=== PATIENT | female | born 1930 | race Caucasian/White ===

== ENCOUNTER 2021-07-22 15:35 | Inpatient (IN) | payer MEDICARE, BC ==
[2021-07-22] MEDS ORDERED: SODIUM CHLORIDE 0.9% 500 ML 500 ML IV STA (16:02)
--- NOTE | 2021-07-22 16:09 | ED ---
General Adult HPI - General Chief complaint: Weakness Stated complaint: Weakness Time Seen by Provider: 07/22/21 15:59 Source: EMS, RN notes reviewed, old records reviewed Mode of arrival: EMS Limitations: no limitations - History of Present Illness Initial comments: 89-year-old female brought in for increased weakness. Patient herself has no complaints time my evaluation. She denies focal numbness or weakness. Denies headache. Denies abdominal pain or chest pain. She is hard of hearing and history is limited. According to EMS and noted the patient have low blood pressure and elevated heart rate. She was in atrial fibrillation with rapid ve ntricular response. Further history will be obtained from the patient's daughter. - Related Data Home Medications Medication Instructions Recorded Confirmed PARoxetine [Paxil] 20 mg PO HS 09/14/14 07/22/21 lisinopriL [Zestril] 5 mg PO DAILY 09/14/14 07/22/21 ALPRAZolam [Xanax] 0.25 mg PO DAILY PRN 07/22/21 07/22/21 Acetaminophen Tab [Tylenol Tab] 500 mg PO QID PRN 07/22/21 07/22/21 Apixaban [Eliquis] 5 mg PO BID 07/22/21 07/22/21 Furosemide [Lasix] 40 mg PO DAILY 07/22/21 07/22/21 Loratadine [Claritin] 10 mg PO DAILY 07/22/21 07/22/21 Metoprolol Tartrate [Lopressor] 25 mg PO TID 07/22/21 07/22/21 Pravastatin Sodium [Pravachol] 40 mg PO HS 07/22/21 07/22/21 Previous Rx's Medication Instructions Recorded Nitroglycerin Sl Tabs [Nitrostat] 0.4 mg SUBLINGUAL Q5M PRN #25 tab 09/18/14 Allergies Allergy/AdvReac Type Severity Reaction Status Date / Time Sulfa (Sulfonamide Allergy Rash/Hives Verified 07/22/21 17:27 Antibiotics) Review of Systems ROS Statement: Those systems with pertinent positive or pertinent negative responses have been documented in the HPI. ROS Other: All systems not noted in ROS Statement are negative. Past Medical History Past Medical History: Coronary Artery Disease (CAD), Eye Disorder, GERD/Reflux, Hyperlipidemia, Hypertension, Skin Disorder Additional Past Medical History / Comment(s): 09/17/14 Pt admitted to floor s/p PTCA and stenting mid LAD. Other HX: macular degeneration R eye, psoriasis, bladder incontinence History of Any Multi-Drug Resistant Organisms: None Reported Past Surgical History: Coronary Bypass/CABG, Heart Catheterization With Stent, Hysterectomy Additional Past Surgical History / Comment(s): 09/17/14 PTCA and stenting mid LAD just before diagonal branch. 08/29/13 triple bypass Past Anesthesia/Blood Transfusion Reactions: No Reported Reaction Date of Last Stent Placement:: 2013 Past Psychological History: Anxiety, Depression Smoking Status: Never smoker Past Alcohol Use History: None Reported Past Drug Use History: None Reported - Past Family History Father Family Medical History: Coronary Artery Disease (CAD), Myocardial Infarction (MA) Additional Family Medical History / Comment(s): Father at age 86yrs. Brother(s) Family Medical History: Coronary Artery Disease (CAD), Myocardial Infarction (MA) Additional Family Medical History / Comment(s): Pt had 2 brothers of MA's one was 45yrs old, and the other 55yrs old. She had one brother who had a blood clot in his lung post nephrectomy. Mother Family Medical History: No Reported History Additional Family Medical History / Comment(s): Mother at age 97yrs. General Exam Limitations: no limitations General appearance: alert, in no apparent distress Head exam: Present: atraumatic, normocephalic Eye exam: Present: normal appearance, PERRL ENT exam: Present: mucous membranes dry Neck exam: Present: normal inspection. Absent: tenderness, meningismus Respiratory exam: Present: normal lung sounds bilaterally. Absent: respiratory distress, wheezes Cardiovascular Exam: Present: tachycardia, irregular rhythm GI/Abdominal exam: Present: soft. Absent: distended, tenderness, guarding, rebound Extremities exam: Present: normal inspection, normal capillary refill. Absent: pedal edema, calf tenderness Neurological exam: Present: alert. Absent: oriented X3, motor sensory deficit Psychiatric exam: Present: normal affect, normal mood Skin exam: Present: warm, dry, intact. Absent: cyanosis, diaphoretic Course Vital Signs 07/22/21 07/22/21 07/22/21 15:48 17:00 18:00 Temperature 98.3 F Pulse Rate 114 H 115 H 112 H Respiratory 24 18 16 Rate Blood Pressure 102/51 110/60 108/66 O2 Sat by Pulse 96 97 96 Oximetry 07/22/21 18:55 Temperature Pulse Rate 105 H Respiratory 18 Rate Blood Pressure 108/46 O2 Sat by Pulse 97 Oximetry - Reevaluation(s) Reevaluation #1: 07/22/21 19:35 I did discuss the patient's CODE STATUS with the daughter who is present and she indicates that the patient is a DO NOT RESUSCITATE and DO NOT INTUBATE. EKG Findings - EKG Comments: EKG Findings:: Atrial fibrillation with RVR, right bundle, left anterior fas cicular block, rate of 114, QRS duration 122, QTC 485, no ST segment elevation Medical Decision Making - Medical Decision Making 89-year-old female, initial history is limited on this patient. After the patient's daughter arrives she indicates that she has not been doing well for about one week. She's been confused. There is no reported fever. No vomiting. The patient did not have any pain complaints. Workup is initiated, showing significant lab abnormalities including leukocytosis of 33. She is in acute renal failure with a creatinine of 2.84. She has a lactic acid of 5.5. She has elevated troponin 0.48. She is anticoagulated with history of atrial fibrillation. She was in A. fib with RVR which is suspect is predominantly from dehydration and sepsis. She is Covid negative. She has a urinary tract infection which is a source of her sepsis. She's given IV hydration in the emergency department. Her head CT is negative for intracranial hemorrhage. Blood cultures are obtained these results are pending as well as urine cultures. IV antibiotics initiated. Case discussed with Dr. Tillman who will admit. - Lab Data Result diagrams: 07/22/21 16:05 07/22/21 16:05 Lab Results 07/22/21 07/22/21 07/22/21 Range/Units 16:05 16:05 16:05 WBC 33.1 H (3.8-10.6) k/uL RBC 4.78 (3.80-5.40) m/uL Hgb 16.3 H (11.4-16.0) gm/dL Hct 48.0 H (34.0-46.0) % MCV 100.5 H (80.0-100.0) fL MCH 34.2 (25.0-35.0) pg MCHC 34.0 (31.0-37.0) g/dL RDW 13.3 (11.5-15.5) % Plt Count 181 (150-450) k/uL MPV 9.8 PT 15.3 H (9.0-12.0) sec INR 1.5 H (<1.2) APTT 26.9 (22.0-30.0) sec Sodium 139 (137-145) mmol/L Potassium 3.9 (3.5-5.1) mmol/L Chloride 106 (98-107) mmol/L Carbon Dioxide 19 L (22-30) mmol/L Anion Gap 14 mmol/L BUN 42 H (7-17) mg/dL Creatinine 2.84 H (0.52-1.04) mg/dL Est GFR (CKD-EPI)AfAm 16 (>60 ml/min/1.73 sqM) Est GFR (CKD-EPI)NonAf 14 (>60 ml/min/1.73 sqM) Glucose 106 H (74-99) mg/dL Lactic Ac Sepsis Rflx Plasma Lactic Acid Poli (0.7-2.0) mmol/L Calcium 8.2 L (8.4-10.2) mg/dL Magnesium 1.7 (1.6-2.3) mg/dL Total Bilirubin 1.5 H (0.2-1.3) mg/dL AST 67 H (14-36) U/L ALT 25 (4-34) U/L Alkaline Phosphatase 82 (38-126) U/L Troponin I (0.000-0.034) ng/mL NT-Pro-B Natriuret Pep pg/mL Total Protein 5.9 L (6.3-8.2) g/dL Albumin 2.9 L (3.5-5.0) g/dL Urine Color Urine Appearance (Clear) Urine pH (5.0-8.0) Ur Specific [place] (1.001-1.035) Urine Protein (Negative) Urine Glucose (UA) (Negative) Urine Ketones (Negative) Urine Blood (Negative) Urine Nitrite (Negative) Urine Bilirubin (Negative) Urine Urobilinogen (<2.0) mg/dL Ur Leukocyte Esterase (Negative) Urine RBC (0-5) /hpf Urine WBC (0-5) /hpf Urine WBC Clumps (None) /hpf Ur Squamous Epith Cells (0-4) /hpf Urine Bacteria (None) /hpf Hyaline Casts (0-2) /lpf Urine Mucus (None) /hpf Coronavirus (PCR) (Not Detectd) 07/22/21 07/22/21 07/22/21 Range/Units 16:05 16:05 16:05 WBC (3.8-10.6) k/uL RBC (3.80-5.40) m/uL Hgb (11.4-16.0) gm/dL Hct (34.0-46.0) % MCV (80.0-100.0) fL MCH (25.0-35.0) pg MCHC (31.0-37.0) g/dL RDW (11.5-15.5) % Plt Count (150-450) k/uL MPV PT (9.0-12.0) sec INR (<1.2) APTT (22.0-30.0) sec Sodium (137-145) mmol/L Potassium (3.5-5.1) mmol/L Chloride (98-107) mmol/L Carbon Dioxide (22-30) mmol/L Anion Gap mmol/L BUN (7-17) mg/dL Creatinine (0.52-1.04) mg/dL Est GFR (CKD-EPI)AfAm (>60 ml/min/1.73 sqM) Est GFR (CKD-EPI)NonAf (>60 ml/min/1.73 sqM) Glucose (74-99) mg/dL Lactic Ac Sepsis Rflx Plasma Lactic Acid Poli 5.5 H* (0.7-2.0) mmol/L Calcium (8.4-10.2) mg/dL Magnesium (1.6-2.3) mg/dL Total Bilirubin (0.2-1.3) mg/dL AST (14-36) U/L ALT (4-34) U/L Alkaline Phosphatase (38-126) U/L Troponin I 0.489 H* (0.000-0.034) ng/mL NT-Pro-B Natriuret Pep 07295 pg/mL Total Protein (6.3-8.2) g/dL Albumin (3.5-5.0) g/dL Urine Color Urine Appearance (Clear) Urine pH (5.0-8.0) Ur Specific [place] (1.001-1.035) Urine Protein (Negative) Urine Glucose (UA) (Negative) Urine Ketones (Negative) Urine Blood (Negative) Urine Nitrite (Negative) Urine Bilirubin (Negative) Urine Urobilinogen (<2.0) mg/dL Ur Leukocyte Esterase (Negative) Urine RBC (0-5) /hpf Urine WBC (0-5) /hpf Urine WBC Clumps (None) /hpf Ur Squamous Epith Cells (0-4) /hpf Urine Bacteria (None) /hpf Hyaline Casts (0-2) /lpf Urine Mucus (None) /hpf Coronavirus (PCR) (Not Detectd) 07/22/21 07/22/21 07/22/21 Range/Units 16:45 17:40 18:00 WBC (3.8-10.6) k/uL RBC (3.80-5.40) m/uL Hgb (11.4-16.0) gm/dL Hct (34.0-46.0) % MCV (80.0-100.0) fL MCH (25.0-35.0) pg MCHC (31.0-37.0) g/dL RDW (11.5-15.5) % Plt Count (150-450) k/uL MPV PT (9.0-12.0) sec INR (<1.2) APTT (22.0-30.0) sec Sodium (137-145) mmol/L Potassium (3.5-5.1) mmol/L Chloride (98-107) mmol/L Carbon Dioxide (22-30) mmol/L Anion Gap mmol/L BUN (7-17) mg/dL Creatinine (0.52-1.04) mg/dL Est GFR (CKD-EPI)AfAm (>60 ml/min/1.73 sqM) Est GFR (CKD-EPI)NonAf (>60 ml/min/1.73 sqM) Glucose (74-99) mg/dL Lactic Ac Sepsis Rflx Y Plasma Lactic Acid Poli (0.7-2.0) mmol/L Calcium (8.4-10.2) mg/dL Magnesium (1.6-2.3) mg/dL Total Bilirubin (0.2-1.3) mg/dL AST (14-36) U/L ALT (4-34) U/L Alkaline Phosphatase (38-126) U/L Troponin I (0.000-0.034) ng/mL NT-Pro-B Natriuret Pep pg/mL Total Protein (6.3-8.2) g/dL Albumin (3.5-5.0) g/dL Urine Color Yellow Urine Appearance Turbid H (Clear) Urine pH 5.0 (5.0-8.0) Ur Specific [place] 1.019 (1.001-1.035) Urine Protein 2+ H (Negative) Urine Glucose (UA) Negative (Negative) Urine Ketones Trace H (Negative) Urine Blood Moderate H (Negative) Urine Nitrite Negative (Negative) Urine Bilirubin Negative (Negative) Urine Urobilinogen 3.0 (<2.0) mg/dL Ur Leukocyte Esterase Large H (Negative) Urine RBC 42 H (0-5) /hpf Urine WBC >182 H (0-5) /hpf Urine WBC Clumps Many H (None) /hpf Ur Squamous Epith Cells 7 H (0-4) /hpf Urine Bacteria Many H (None) /hpf Hyaline Casts 50 H (0-2) /lpf Urine Mucus Rare H (None) /hpf Coronavirus (PCR) Not Detected (Not Detectd) Critical Care Time Critical Care Time: Yes Total Critical Care Time: 35 Disposition Clinical Impression: Dehydration, Acute renal failure, UTI (urinary tract infection), Lactic acidosis, Elevated troponin I level Disposition: ADMITTED IP TO THIS [facility] Condition: Serious Is patient prescribed a controlled substance at d/c from ED?: No Referrals: Marissa Tillman MD [Primary Care Provider] - 1-2 days Decision to Admit Reason: Admit from EC Decision Date: 07/22/21 Decision Time: 19:37
[2021-07-22 16:24] LABS: Albumin 2.9 g/dL (3.5-5.0); Calcium 8.2 mg/dL (8.4-10.2); Magnesium 1.7 mg/dL (1.6-2.3); Potassium 3.9 mmol/L (3.5-5.1); Total Bilirubin 1.5 mg/dL (0.2-1.3); Total Protein 5.9 g/dL (6.3-8.2)
[2021-07-22 16:31] LABS: INR 1.5 (<1.2); Partial Thromboplastin Time 26.9 sec (22.0-30.0); Prothrombin Time 15.3 sec (9.0-12.0)
[2021-07-22 16:46] LABS: HGB 16.3 gm/dL (11.4-16.0); MCH 34.2 pg (25.0-35.0); MCV 100.5 fL (80.0-100.0); Mean Platelet Volume 9.8; Platelet Count 181 k/uL (150-450); RBC 4.78 m/uL (3.80-5.40); RDW 13.3 % (11.5-15.5)
--- NOTE | 2021-07-22 16:48 | CT ---
EXAMINATION TYPE: CT brain wo con DATE OF EXAM: 07/22/2021 COMPARISON: 12/30/2013 HISTORY: Altered mental status. CT DLP: 1127.4 mGycm Automated exposure control for dose reduction was used. Images obtained of the brain without contrast. There is cerebral cortical atrophy. There is no mass effect nor midline shift. There is no sign of in tracranial hemorrhage. The calvarium is intact. Skull base is intact IMPRESSION: Cerebral atrophy. No acute intracranial abnormality. No change compared to old exam.
--- NOTE | 2021-07-22 16:50 | XR ---
EXAMINATION TYPE: XR chest 2V DATE OF EXAM: 07/22/2021 COMPARISON: 09/11/2013 HISTORY: Weakness TECHNIQUE: 2 views FINDINGS: Heart is enlarged. There is coarse increased interstitial pulmonary density. There are ster nal wires. There is no definite pleural effusion. IMPRESSION: Cardiomegaly. There is clearing of the pleural effusions compared to old exam. 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 Acute mild heart failure not excluded.
[2021-07-22 16:56] LABS: WBC 33.1 k/uL (3.8-10.6)
[2021-07-22] MEDS ORDERED: SODIUM CHLORIDE 0.9% 500 ML 500 ML IV ONE (17:23)
[2021-07-22] MEDS ORDERED: cefTRIAXone IN SWFI 1,000 MG/10 ML SYRINGE IVP STA (17:24)
[2021-07-22 18:46] LABS: Appearance,Urine Turbid (Clear); Bacteria,Urine Many /hpf; Bilirubin,Urine Negative (Negative); Blood,Urine Moderate (Negative); Color,Urine Yellow; Glucose,Urine (UA) Negative (Negative); Hyaline Casts,Urine 50 /lpf (0-2); Ketones,Urine Trace (Negative); Leukocyte Esterase,Urine Large (Negative); Mucus,Urine Rare /hpf; Nitrite,Urine Negative (Negative); Protein,Urine 2+ (Negative); RBC,Urine 42 /hpf (0-5); Specific Gravity,Urine 1.019 (1.001-1.035); Squamous Epithelial Cell,Urine 7 /hpf (0-4); WBC,Urine >182 /hpf (0-5)
[2021-07-22] MEDS: SODIUM CHLORIDE 0.9% 1,000 ML IV SCH (18:48)
[2021-07-22] MEDS ORDERED: NALOXONE 0.4 MG/ML 1 ML VIAL IV PRN (19:32)
[2021-07-22] MEDS ORDERED: ALPRAZolam 0.25 MG TAB PO PRN (19:34)
[2021-07-22 19:39] LABS: Band Neutrophils % 14 %; Eosinophils # (M) 0.33 k/uL (0-0.7); Lymphocytes # (M) 1.99 k/uL (1.0-4.8); Metamyelocytes # (M) 0.99 k/uL (0); Metamyelocytes % 3 %; Monocytes # (M) 1.32 k/uL (0-1.0); Myelocytes # (M) 0.33 k/uL (0); Myelocytes % 1 %; Neutrophils % (M) 74 %; Nucleated Red Blood Cells 0 /100 WBC (0-0); Total Cells Counted 200
[2021-07-22 19:40] LABS: Toxic Vacuolation Present
[2021-07-22] MEDS: METOPROLOL TARTRATE 25 MG TAB PO SCH (22:43)
[2021-07-22] MEDS: APIXABAN 5 MG TAB PO SCH (22:43)
[2021-07-23] MEDS: SODIUM CHLORIDE 0.9% 1,000 ML IV SCH ×3 (06:42→21:11)
[2021-07-23 08:34] LABS: Albumin 2.7 g/dL (3.5-5.0); Calcium 7.7 mg/dL (8.4-10.2); Total Bilirubin 1.6 mg/dL (0.2-1.3); Total Protein 5.9 g/dL (6.3-8.2)
[2021-07-23 08:36] LABS: Potassium 5.1 mmol/L (3.5-5.1)
[2021-07-23] MEDS: FUROSEMIDE 40 MG TAB PO SCH (09:04)
[2021-07-23] MEDS: METOPROLOL TARTRATE 25 MG TAB PO SCH ×3 (09:04→21:11)
[2021-07-23] MEDS: APIXABAN 5 MG TAB PO SCH ×2 (09:04→21:11)
[2021-07-23 09:13] LABS: HGB 14.6 gm/dL (11.4-16.0); Hypochromasia Slight; MCH 33.5 pg (25.0-35.0); MCHC 32.5 g/dL (31.0-37.0); MCV 102.8 fL (80.0-100.0); Macrocytosis Slight; Mean Platelet Volume 9.5; Platelet Count 169 k/uL (150-450); RBC 4.37 m/uL (3.80-5.40); RDW 13.8 % (11.5-15.5); WBC 23.6 k/uL (3.8-10.6)
[2021-07-23 12:00] LABS: Band Neutrophils % 6 %; Lymphocytes # (M) 1.18 k/uL (1.0-4.8); Metamyelocytes # (M) 0.47 k/uL (0); Metamyelocytes % 2 %; Monocytes # (M) 0.94 k/uL (0-1.0); Myelocytes # (M) 0.24 k/uL (0); Myelocytes % 1 %; Neutrophils % (M) 82 %; Nucleated Red Blood Cells 0 /100 WBC (0-0); Total Cells Counted 100
[2021-07-23 12:01] LABS: Toxic Vacuolation Present
[2021-07-23] MEDS ORDERED: VANCOMYCIN IV PER PHARMACY 1 EACH MISC MISCELLANE PRN (13:27)
[2021-07-23] MEDS ORDERED: VANCOMYCIN 1,250 MG in SODIUM CHLORIDE 0.9% 250 ML IVPB ONE (14:00)
[2021-07-23] MEDS ORDERED: NITROGLYCERIN SL TABS 0.4 MG TAB SUBLINGUAL PRN (15:37)
[2021-07-23] MEDS: PRAVASTATIN SODIUM 40 MG TAB PO SCH (21:11)
[2021-07-23] MEDS: PARoxetine 20 MG TAB PO SCH (21:11)
[2021-07-23] MEDS: PIPERACILLIN-TAZOBACTAM 3.375 GM in SODIUM CHLORIDE 0.9% 100 ML IVPB SCH (21:12)
[2021-07-24] MEDS: SODIUM CHLORIDE 0.9% 1,000 ML IV SCH ×4 (03:08→22:56)
[2021-07-24 06:34] LABS: Basophils % (A) 0 %; Eosinophils # (A) 0.1 k/uL (0-0.7); Eosinophils % (A) 1 %; HCT 44.1 % (34.0-46.0); HGB 13.9 gm/dL (11.4-16.0); Lymphocytes # (A) 0.8 k/uL (1.0-4.8); Lymphocytes % (A) 4 %; MCH 31.8 pg (25.0-35.0); MCHC 31.6 g/dL (31.0-37.0); MCV 100.9 fL (80.0-100.0); Mean Platelet Volume 8.7; Monocytes # (A) 0.4 k/uL (0-1.0); Monocytes % (A) 2 %; Neutrophils % (A) 92 %; Platelet Count 178 k/uL (150-450); RBC 4.37 m/uL (3.80-5.40); RDW 13.4 % (11.5-15.5); WBC 18.5 k/uL (3.8-10.6)
[2021-07-24 06:56] LABS: Albumin 2.5 g/dL (3.5-5.0); Calcium 7.7 mg/dL (8.4-10.2); Potassium 3.3 mmol/L (3.5-5.1); Total Bilirubin 1.7 mg/dL (0.2-1.3); Total Protein 5.5 g/dL (6.3-8.2)
[2021-07-24] MEDS: FUROSEMIDE 40 MG TAB PO SCH (08:24)
[2021-07-24] MEDS: METOPROLOL TARTRATE 25 MG TAB PO SCH ×3 (08:25→20:10)
[2021-07-24] MEDS: LORATADINE 10 MG TAB PO SCH (08:25)
[2021-07-24] MEDS: PIPERACILLIN-TAZOBACTAM 3.375 GM in SODIUM CHLORIDE 0.9% 100 ML IVPB SCH (08:25)
[2021-07-24] MEDS: APIXABAN 5 MG TAB PO SCH ×2 (08:25→20:10)
--- NOTE | 2021-07-24 08:48 | P.CONS ---
History of Present Illness - Reason for Consult Consult date: 07/23/21 bacteremia Requesting physician: Vivek Tillman - Chief Complaint weakness x few days - History of Present Illness istory of present illness : Patient is 89-year-old female who was brought into the hospital yesterday afternoon for evaluation of increased weakness according to EMS who brought the patient to the hospital patient did have low blood pressure and elevated heart rate patient was noticed to be in atrial fibrillation with rapid ventricular response and most information was obtained by the ER physician from the patient daughter. Patient was subsequently admitted to hospital patient did not have any fever on this admission no significant hypoxemia patient did have white count of 33,000 which is down to 23,000 today patient did have a elevated lactic acid elevated BUN and creatinine AST was mildly elevated urine is positive franco PCR was negative patient did have a chest x-ray cardiomegaly clearing of the pleural effusion compared to old exam patient noted to have a positive blood culture with gram-negative bacilli patient has been treated with vancomycin and Zosyn infectious disease was consulted today for further management of antibiotic therapy, patient denies having any chest pain no shortness of breath or cough to me no significant abdominal pain no nausea no vomiting no diarrhea but not specifically for urinary symptoms denied ulcerating specifically history is limited Review of system: Positive point has been mentioned in HPI complete review could not be obtained because of underlying mental status Past medical history : Reviewed, documented below Past surgical history : Reviewed, documented below Social history: Reviewed, documented below Medications: Reviewed, as documented below EXAMINATION: Vital sigans= Reviewed and documented below GENERAL DESCRIPTION: Elderly female lying in bed, no distress. No tachypnea or accessory muscle of respiration use. HEENT: Shows Pallor , no scleral icterus. Oral mucous membrane is dry. NECK: Trachea central, no thyromegaly. LUNGS: Unlabored breathing. Clear to auscultation anteriorly. No wheeze or crackle. HEART: S1, S2, regular rate and rhythm. ABDOMEN: Soft, no tenderness , guarding or rigidity EXTREMITIES: No edema of feet. SKIN: No rash, no masses palpable. NEUROLOGICAL: The patient is awake, alert, oriented x2, mood and affect normal. LABS AND RADIOLOGY: Reviewed results see below Assessment : 1-Patient with gram-negative bacteremia source is likely urinary in this patient did have significantly positive UA patient did have a elevated lactic acid however abdominal was soft on clinical examination and clinically behaving as pneumonia 2-renal insufficiency and high risk of nephrotoxicity from vancomycin Plan: 1-discontinue vancomycin 2-continue with Zosyn while awaiting for ID sensitivity of this pathogen 3-obtain ultrasound of the abdomen/kidneys area to rule out obstructive uropathy We will follow on clinical condition and cultures to further adjust medication if needed Thank you for this consultation we will follow the patient along with you Past Medical History Past Medical History: Coronary Artery Disease (CAD), CVA/TIA, Eye Disorder, GERD/Reflux, Hyperlipidemia, Hypertension, Skin Disorder Additional Past Medical History / Comment(s): 09/17/14 Pt admitted to floor s/p PTCA and stenting mid LAD. Other HX: macular degeneration R eye, psoriasis, bladder incontinence. CVA 2019. History of Any Multi-Drug Resistant Organisms: None Reported Past Surgical History: Coronary Bypass/CABG, Heart Catheterization With Stent, Hysterectomy Additional Past Surgical History / Comment(s): 09/17/14 PTCA and stenting mid LAD just before diagonal branch. 08/29/13 triple bypass Past Anesthesia/Blood Transfusion Reactions: No Reported Reaction Date of Last Stent Placement:: 2013 Past Psychological History: Anxiety, Depression Additional Psychological History / Comment(s): Pt resides in a senior apartment. Pt is independent. She manages her own medications, cooks, cleans and performs all of her own ADL's. She does not use any devices. Smoking Status: Never smoker Past Alcohol Use History: None Reported Past Drug Use History: None Reported - Past Family History Father Family Medical History: Coronary Artery Disease (CAD), Myocardial Infarction (MA) Additional Family Medical History / Comment(s): Father at age 86yrs. Brother(s) Family Medical History: Coronary Artery Disease (CAD), Myocardial Infarction (MA) Additional Family Medical History / Comment(s): Pt had 2 brothers of MA's one was 45yrs old, and the other 55yrs old. She had one brother who had a blood clot in his lung post nephrectomy. Mother Family Medical History: No Reported History Additional Family Medical History / Comment(s): Mother at age 97yrs. Medications and Allergies Home Medications Medication Instructions Recorded Confirmed Type PARoxetine [Paxil] 20 mg PO HS 09/14/14 07/22/21 History lisinopriL [Zestril] 5 mg PO DAILY 09/14/14 07/22/21 History Nitroglycerin Sl Tabs [Nitrostat] 0.4 mg SUBLINGUAL Q5M PRN #25 tab 09/18/14 07/22/21 Rx ALPRAZolam [Xanax] 0.25 mg PO DAILY PRN 07/22/21 07/22/21 History Acetaminophen Tab [Tylenol Tab] 500 mg PO QID PRN 07/22/21 07/22/21 History Apixaban [Eliquis] 5 mg PO BID 07/22/21 07/22/21 History Furosemide [Lasix] 40 mg PO DAILY 07/22/21 07/22/21 History Loratadine [Claritin] 10 mg PO DAILY 07/22/21 07/22/21 History Metoprolol Tartrate [Lopressor] 25 mg PO TID 07/22/21 07/22/21 History Pravastatin Sodium [Pravachol] 40 mg PO HS 07/22/21 07/22/21 History Allergies Allergy/AdvReac Type Severity Reaction Status Date / Time Sulfa (Sulfonamide Allergy Rash/Hives Verified 07/22/21 17:27 Antibiotics) Physical Exam Vitals: Vital Signs Temp Pulse Pulse Resp BP BP Pulse Ox 07/23/21 11:49 97.4 F L 81 16 111/75 96 07/23/21 08:00 98.2 F 103 H 16 92/61 98 07/23/21 03:15 97.7 F 94 18 96/63 94 L 07/22/21 22:45 98 F 116 H 18 104/67 98 07/22/21 22:10 114 H 20 101/58 95 07/22/21 21:00 114 H 20 95/41 99 07/22/21 20:17 104 H 20 94/68 97 07/22/21 18:55 105 H 18 108/46 97 07/22/21 18:00 112 H 16 108/66 96 07/22/21 17:00 115 H 18 110/60 97 07/22/21 15:48 98.3 F 114 H 24 102/51 96 Intake and Output 07/23/21 07/23/21 07/23/21 06:59 14:59 22:59 Intake Total 120 Balance 120 Intake: Oral 120 Other: # Voids 1 2 # Bowel Movements 1 2 Weight 70 kg Results CBC & Chem 7: 07/24/21 06:15 07/24/21 06:15 Labs: Abnormal Lab Results - Last 24 Hours (Table) 07/22/21 07/22/21 07/22/21 Range/Units 16:05 16:05 16:05 WBC 33.1 H (3.8-10.6) k/uL Hgb 16.3 H (11.4-16.0) gm/dL Hct 48.0 H (34.0-46.0) % MCV 100.5 H (80.0-100.0) fL Neutrophils # (Manual) 29.10 H (1.3-7.7) k/uL Monocytes # (Manual) 1.32 H (0-1.0) k/uL Metamyelocytes # (Man) 0.99 H (0) k/uL Myelocytes # (Manual) 0.33 H (0) k/uL PT 15.3 H (9.0-12.0) sec INR 1.5 H (<1.2) Chloride (98-107) mmol/L Carbon Dioxide 19 L (22-30) mmol/L BUN 42 H (7-17) mg/dL Creatinine 2.84 H (0.52-1.04) mg/dL Glucose 106 H (74-99) mg/dL Plasma Lactic Acid Poli (0.7-2.0) mmol/L Calcium 8.2 L (8.4-10.2) mg/dL Total Bilirubin 1.5 H (0.2-1.3) mg/dL AST 67 H (14-36) U/L Troponin I (0.000-0.034) ng/mL Total Protein 5.9 L (6.3-8.2) g/dL Albumin 2.9 L (3.5-5.0) g/dL Urine Appearance (Clear) Urine Protein (Negative) Urine Ketones (Negative) Urine Blood (Negative) Ur Leukocyte Esterase (Negative) Urine RBC (0-5) /hpf Urine WBC (0-5) /hpf Urine WBC Clumps (None) /hpf Ur Squamous Epith Cells (0-4) /hpf Urine Bacteria (None) /hpf Hyaline Casts (0-2) /lpf Urine Mucus (None) /hpf 07/22/21 07/22/21 07/22/21 Range/Units 16:05 16:05 17:40 WBC (3.8-10.6) k/uL Hgb (11.4-16.0) gm/dL Hct (34.0-46.0) % MCV (80.0-100.0) fL Neutrophils # (Manual) (1.3-7.7) k/uL Monocytes # (Manual) (0-1.0) k/uL Metamyelocytes # (Man) (0) k/uL Myelocytes # (Manual) (0) k/uL PT (9.0-12.0) sec INR (<1.2) Chloride (98-107) mmol/L Carbon Dioxide (22-30) mmol/L BUN (7-17) mg/dL Creatinine (0.52-1.04) mg/dL Glucose (74-99) mg/dL Plasma Lactic Acid Poli 5.5 H* (0.7-2.0) mmol/L Calcium (8.4-10.2) mg/dL Total Bilirubin (0.2-1.3) mg/dL AST (14-36) U/L Troponin I 0.489 H* (0.000-0.034) ng/mL Total Protein (6.3-8.2) g/dL Albumin (3.5-5.0) g/dL Urine Appearance Turbid H (Clear) Urine Protein 2+ H (Negative) Urine Ketones Trace H (Negative) Urine Blood Moderate H (Negative) Ur Leukocyte Esterase Large H (Negative) Urine RBC 42 H (0-5) /hpf Urine WBC >182 H (0-5) /hpf Urine WBC Clumps Many H (None) /hpf Ur Squamous Epith Cells 7 H (0-4) /hpf Urine Bacteria Many H (None) /hpf Hyaline Casts 50 H (0-2) /lpf Urine Mucus Rare H (None) /hpf 07/22/21 07/22/21 07/22/21 Range/Units 20:38 20:38 23:16 WBC (3.8-10.6) k/uL Hgb (11.4-16.0) gm/dL Hct (34.0-46.0) % MCV (80.0-100.0) fL Neutrophils # (Manual) (1.3-7.7) k/uL Monocytes # (Manual) (0-1.0) k/uL Metamyelocytes # (Man) (0) k/uL Myelocytes # (Manual) (0) k/uL PT (9.0-12.0) sec INR (<1.2) Chloride (98-107) mmol/L Carbon Dioxide (22-30) mmol/L BUN (7-17) mg/dL Creatinine (0.52-1.04) mg/dL Glucose (74-99) mg/dL Plasma Lactic Acid Poli 3.3 H* (0.7-2.0) mmol/L Calcium (8.4-10.2) mg/dL Total Bilirubin (0.2-1.3) mg/dL AST (14-36) U/L Troponin I 0.349 H* 0.277 H* (0.000-0.034) ng/mL Total Protein (6.3-8.2) g/dL Albumin (3.5-5.0) g/dL Urine Appearance (Clear) Urine Protein (Negative) Urine Ketones (Negative) Urine Blood (Negative) Ur Leukocyte Esterase (Negative) Urine RBC (0-5) /hpf Urine WBC (0-5) /hpf Urine WBC Clumps (None) /hpf Ur Squamous Epith Cells (0-4) /hpf Urine Bacteria (None) /hpf Hyaline Casts (0-2) /lpf Urine Mucus (None) /hpf 07/22/21 07/23/21 07/23/21 Range/Units 23:16 07:21 07:21 WBC 23.6 H (3.8-10.6) k/uL Hgb (11.4-16.0) gm/dL Hct (34.0-46.0) % MCV 102.8 H (80.0-100.0) fL Neutrophils # (Manual) 20.70 H (1.3-7.7) k/uL Monocytes # (Manual) (0-1.0) k/uL Metamyelocytes # (Man) 0.47 H (0) k/uL Myelocytes # (Manual) 0.24 H (0) k/uL PT (9.0-12.0) sec INR (<1.2) Chloride 112 H (98-107) mmol/L Carbon Dioxide 19 L (22-30) mmol/L BUN 49 H (7-17) mg/dL Creatinine 2.09 H (0.52-1.04) mg/dL Glucose (74-99) mg/dL Plasma Lactic Acid Poli 2.7 H* (0.7-2.0) mmol/L Calcium 7.7 L (8.4-10.2) mg/dL Total Bilirubin 1.6 H (0.2-1.3) mg/dL AST 70 H (14-36) U/L Troponin I (0.000-0.034) ng/mL Total Protein 5.9 L (6.3-8.2) g/dL Albumin 2.7 L (3.5-5.0) g/dL Urine Appearance (Clear) Urine Protein (Negative) Urine Ketones (Negative) Urine Blood (Negative) Ur Leukocyte Esterase (Negative) Urine RBC (0-5) /hpf Urine WBC (0-5) /hpf Urine WBC Clumps (None) /hpf Ur Squamous Epith Cells (0-4) /hpf Urine Bacteria (None) /hpf Hyaline Casts (0-2) /lpf Urine Mucus (None) /hpf 07/23/21 07/23/21 Range/Units 07:21 10:57 WBC (3.8-10.6) k/uL Hgb (11.4-16.0) gm/dL Hct (34.0-46.0) % MCV (80.0-100.0) fL Neutrophils # (Manual) (1.3-7.7) k/uL Monocytes # (Manual) (0-1.0) k/uL Metamyelocytes # (Man) (0) k/uL Myelocytes # (Manual) (0) k/uL PT (9.0-12.0) sec INR (<1.2) Chloride (98-107) mmol/L Carbon Dioxide (22-30) mmol/L BUN (7-17) mg/dL Creatinine (0.52-1.04) mg/dL Glucose (74-99) mg/dL Plasma Lactic Acid Poli 2.1 H* 2.2 H* (0.7-2.0) mmol/L Calcium (8.4-10.2) mg/dL Total Bilirubin (0.2-1.3) mg/dL AST (14-36) U/L Troponin I (0.000-0.034) ng/mL Total Protein (6.3-8.2) g/dL Albumin (3.5-5.0) g/dL Urine Appearance (Clear) Urine Protein (Negative) Urine Ketones (Negative) Urine Blood (Negative) Ur Leukocyte Esterase (Negative) Urine RBC (0-5) /hpf Urine WBC (0-5) /hpf Urine WBC Clumps (None) /hpf Ur Squamous Epith Cells (0-4) /hpf Urine Bacteria (None) /hpf Hyaline Casts (0-2) /lpf Urine Mucus (None) /hpf Microbiology - Last 24 Hours (Table) 07/22/21 18:15 Blood Culture Gram Stain - Preliminary Blood 07/22/21 18:15 Blood Culture Gram Stain - Preliminary Blood 07/22/21 18:15 Blood Culture - Final Blood 07/22/21 18:15 Blood Culture - Final Blood 07/22/21 17:40 Urine Culture - Preliminary Urine,Catheterized
[2021-07-24] MEDS ORDERED: POTASSIUM CHLORIDE ER 20 MEQ TAB.ER PO STA (10:33)
[2021-07-24] MEDS ORDERED: VANCOMYCIN 1,250 MG in SODIUM CHLORIDE 0.9% 250 ML IVPB ONE (12:00)
--- NOTE | 2021-07-24 12:35 | P.CRDCN ---
History of Present Illness History of present illness: HISTORY OF PRESENTING ILLNESS This is a pleasant 89-year-old female past medical history significant for coronary artery disease s/p CABG (ROPER to LAD, SVG to diagonal and RCA) 2013, PCI to mid LAD in 2014, hypertension, hyperlipidemia, chronic persistent atrial fibrillation on Eliquis. She follows in the office with Dr. Steen. We have been asked to see in consultation for atrial fibrillation with RVR. Patient presents to the emergency department with increased generalized weakness. Patient was found to be hypotensive and tachycardic in atrial fibrillation with RVR. She denies chest pain, shortness of breath, lightheadedness of dizziness. On admission, patient found to have acute kidney injury, elevated troponin 0.4, 0.34, 0.27, lactic acidosis, leukocytosis, and UTI. Patient was started on IV fluids with improvement in heart rate. DIAGNOSTICS -EKG reveals atrial fibrillation with RVR HR 114, right bundle branch block, left anterior fascicular block. -Telemetry tracings indicate atrial fibrillation with controlled ventricular rates -Chest xray Cardiomegaly, clearing of the pleural effusions, some pulmonary fibrosis -Most recent echocardiogram- 01/2020 in the office revealed EF 60-70%, mild concentric LVH, mild tricuspid regurgitation Laboratory reviewed, WBC 18.5, Hgb 13.9, Plt 178, Sodium 140, K 3.3, BUN 39, sCr 1.38, Mag 1.7, Total bilirubin 1.7, AST 49, Alk PHos 130, pro BNP 43,400 Current home medications include Lasix 40 mg daily, lisinopril 500 g daily, metoprolol titrate 25 mg 3 times a day, Eliquis 5 mg twice a day, pravastatin 40 mg nightly REVIEW OF SYSTEMS At the time of my exam: CONSTITUTIONAL: Denies fever or chills. CARDIOVASCULAR: Denies chest pain, shortness of breath, orthopnea, PND or palpitations. RESPIRATORY: Denies cough. GASTROINTESTINAL: Denies abdominal pain, diarrhea, constipation, nausea or vomiting. MUSCULOSKELETAL: Denies myalgias. NEUROLOGIC: Denies numbness, tingling, headacbe or weakness. ENDOCRINE: Denies fatigue, weight change, polydipsia or polyurina. GENITOURINARY: Denies burning, hematuria or urgency with micturation. HEMATOLOGIC: Denies history of anemia or bleeding. PHYSICAL EXAMINATION Vitals 129/71 HR 77, afebrile, SpO2 96% on 4L nasal cannula CONSTITUTIONAL: No apparent distress. HEENT: Head is normocephalic. Pupils are equal, round. Sclerae anicteric. Mucous membranes of the mouth are moist. No JVD. No carotid bruit. CHEST EXAMINATION: Lungs are clear to auscultation. No chest wall tenderness is noted on palpation or with deep breathing. HEART EXAMINATION: Regular rate and rhythm. S1, S2 heard. No murmurs, gallops or rub. ABDOMEN: Soft, nontender. Positive bowel sounds. EXTREMITIES: 2+ peripheral pulses, no lower extremity edema and no calf tenderness. SKIN: warm, dry NEUROLOGIC EXAMINATION: Patient is awake, alert and oriented x3. ASSESSMENT Chronic persistent atrial fibrillation with RVR - on Eliquis Acute kidney injury Hypokalemia Lactic acidosis Urinary tract infection Leukocytosis Elevated troponin, likely due to acute kidney injury, no clinical evidence of acute coronary syndrome at this time Coronary artery disease s/p CABG (ROPER to LAD, SVG to diagonal and RCA) 2013, PCI to mid LAD in 2014 History of hypertension History of hyperlipidemia PLAN -Patient heart rates and kidney function has improved with IV fluids -Will continue patient's home medications Eliquis, metoprolol tartrate 25mg TID. -Lasix and Lisinopril on hold due to [place] -Obtain 2D echocardiogram -Further recommendations based on clinical course Nurse Practitioner note has been reviewed, I agree with a documented findings and plan of care. Patient was seen and examined. Past Medical History Past Medical History: Coronary Artery Disease (CAD), CVA/TIA, Eye Disorder, GERD/Reflux, Hyperlipidemia, Hypertension, Skin Disorder Additional Past Medical History / Comment(s): 09/17/14 Pt admitted to floor s/p PTCA and stenting mid LAD. Other HX: macular degeneration R eye, psoriasis, bladder incontinence. CVA 2019. History of Any Multi-Drug Resistant Organisms: None Reported Past Surgical History: Coronary Bypass/CABG, Heart Catheterization With Stent, Hysterectomy Additional Past Surgical History / Comment(s): 09/17/14 PTCA and stenting mid LAD just before diagonal branch. 08/29/13 triple bypass Past Anesthesia/Blood Transfusion Reactions: No Reported Reaction Date of Last Stent Placement:: 2013 Past Psychological History: Anxiety, Depression Additional Psychological History / Comment(s): Pt resides in a senior apartment. Pt is independent. She manages her own medications, cooks, cleans and performs all of her own ADL's. She does not use any devices. Smoking Status: Never smoker Past Alcohol Use History: None Reported Past Drug Use History: None Reported - Past Family History Father Family Medical History: Coronary Artery Disease (CAD), Myocardial Infarction (DC) Additional Family Medical History / Comment(s): Father at age 86yrs. Brother(s) Family Medical History: Coronary Artery Disease (CAD), Myocardial Infarction (DC) Additional Family Medical History / Comment(s): Pt had 2 brothers of DC's one was 45yrs old, and the other 55yrs old. She had one brother who had a blood clot in his lung post nephrectomy. Mother Family Medical History: No Reported History Additional Family Medical History / Comment(s): Mother at age 97yrs. Medications and Allergies Home Medications Medication Instructions Recorded Confirmed Type PARoxetine [Paxil] 20 mg PO HS 09/14/14 07/22/21 History lisinopriL [Zestril] 5 mg PO DAILY 09/14/14 07/22/21 History Nitroglycerin Sl Tabs [Nitrostat] 0.4 mg SUBLINGUAL Q5M PRN #25 tab 09/18/14 07/22/21 Rx ALPRAZolam [Xanax] 0.25 mg PO DAILY PRN 07/22/21 07/22/21 History Acetaminophen Tab [Tylenol Tab] 500 mg PO QID PRN 07/22/21 07/22/21 History Apixaban [Eliquis] 5 mg PO BID 07/22/21 07/22/21 History Furosemide [Lasix] 40 mg PO DAILY 07/22/21 07/22/21 History Loratadine [Claritin] 10 mg PO DAILY 07/22/21 07/22/21 History Metoprolol Tartrate [Lopressor] 25 mg PO TID 07/22/21 07/22/21 History Pravastatin Sodium [Pravachol] 40 mg PO HS 07/22/21 07/22/21 History Allergies Allergy/AdvReac Type Severity Reaction Status Date / Time Sulfa (Sulfonamide Allergy Rash/Hives Verified 07/22/21 17:27 Antibiotics) Physical Exam Vitals: Vital Signs Temp Pulse Resp BP Pulse Ox 07/24/21 03:11 98.3 F 91 20 137/82 96 07/24/21 01:49 18 07/23/21 23:52 97.4 F L 86 18 123/63 98 07/23/21 20:00 98.1 F 74 18 160/68 97 07/23/21 16:00 89 16 145/83 96 07/23/21 11:49 97.4 F L 81 16 111/75 96 07/23/21 08:00 98.2 F 103 H 16 92/61 98 Intake and Output 07/23/21 07/24/21 07/24/21 22:59 06:59 14:59 Intake Total 120 1010 Output Total 300 Balance -180 1010 Intake: Intake, IV Titration 1010 Amount Piperacillin-Tazobactam 3 100 .375 gm In Sodium Chloride 0.9% 100 ml @ 25 mls/hr IVPB Q12HR [facility] Rx #:[id number] Sodium Chloride 0.9% 1, 910 000 ml @ 130 mls/hr IV . Q7H42M [facility] Rx#:[id number] Oral 120 Output: Urine 300 Other: # Voids 2 Results 07/24/21 06:15 07/24/21 06:15 Cardiac Enzymes 07/23/21 07/24/21 Range/Units 07:21 06:15 AST 70 H 49 H (14-36) U/L CBC 07/23/21 07/24/21 Range/Units 07:21 06:15 WBC 23.6 H 18.5 H (3.8-10.6) k/uL RBC 4.37 4.37 (3.80-5.40) m/uL Hgb 14.6 13.9 (11.4-16.0) gm/dL Hct 45.0 44.1 (34.0-46.0) % Plt Count 169 178 (150-450) k/uL Comprehensive Metabolic Panel 07/23/21 07/24/21 Range/Units 07:21 06:15 Sodium 140 140 (137-145) mmol/L Potassium 5.1 3.3 L (3.5-5.1) mmol/L Chloride 112 H 110 H (98-107) mmol/L Carbon Dioxide 19 L 19 L (22-30) mmol/L BUN 49 H 39 H (7-17) mg/dL Creatinine 2.09 H 1.38 H (0.52-1.04) mg/dL Glucose 88 100 H (74-99) mg/dL Calcium 7.7 L 7.7 L (8.4-10.2) mg/dL AST 70 H 49 H (14-36) U/L ALT 26 27 (4-34) U/L Alkaline Phosphatase 94 130 H (38-126) U/L Total Protein 5.9 L 5.5 L (6.3-8.2) g/dL Albumin 2.7 L 2.5 L (3.5-5.0) g/dL Current Medications Generic Name Dose Route Start Last Admin Trade Name Freq PRN Reason Stop Dose Admin Acetaminophen 650 mg 07/22/21 19:32 Acetaminophen Tab 325 Mg Tab PO Q6HR PRN Mild Pain or Fever > 100.5 Alprazolam 0.25 mg 07/22/21 19:34 Alprazolam 0.25 Mg Tab PO DAILY PRN Anxiety Apixaban 5 mg 07/22/21 21:00 07/23/21 21:11 Apixaban 5 Mg Tab PO 5 mg BID MARLEN Administration Protocol Furosemide 40 mg 07/23/21 09:00 07/23/21 09:04 Furosemide 40 Mg Tab PO 40 mg DAILY MARLEN Administration Sodium Chloride 1,000 mls @ 130 mls/hr 07/22/21 17:30 07/24/21 03:08 Saline 0.9% IV 130 mls/hr .Q7H42M MARLEN Administration Piperacillin Sod/Tazobactam 100 mls @ 25 mls/hr 07/23/21 21:00 07/23/21 21:12 Sod 3.375 gm/ Sodium Chloride IVPB 25 mls/hr Q12HR MARLEN Administration Loratadine 10 mg 07/24/21 09:00 Loratadine 10 Mg Tab PO DAILY MARLEN Metoprolol Tartrate 25 mg 07/22/21 22:00 07/23/21 21:11 Metoprolol Tartrate 25 Mg Tab PO 25 mg TID MARLEN Administration Naloxone HCl 0.2 mg 07/22/21 19:32 Naloxone 0.4 Mg/Ml 1 Ml Vial IV Q2M PRN Opioid Reversal Nitroglycerin 0.4 mg 07/23/21 15:37 Nitroglycerin Sl Tabs 0.4 Mg Tab SUBLINGUAL Q5M PRN Chest Pain Paroxetine HCl 20 mg 07/23/21 21:00 07/23/21 21:11 Paroxetine 20 Mg Tab PO 20 mg HS MARLEN Administration Pravastatin Sodium 40 mg 07/23/21 21:00 07/23/21 21:11 Pravastatin Sodium 40 Mg Tab PO 40 mg HS MARLEN Administration Intake and Output 07/23/21 07/24/21 07/24/21 22:59 06:59 14:59 Intake Total 120 1010 Output Total 300 Balance -180 1010 Intake: Intake, IV Titration 1010 Amount Piperacillin-Tazobactam 3 100 .375 gm In Sodium Chloride 0.9% 100 ml @ 25 mls/hr IVPB Q12HR [facility] Rx #:[id number] Sodium Chloride 0.9% 1, 910 000 ml @ 130 mls/hr IV . Q7H42M [facility] Rx#:[id number] Oral 120 Output: Urine 300 Other: # Voids 2 07/24/21 06:15 07/24/21 06:15
--- NOTE | 2021-07-24 14:42 | ECHOF ---
Referral Reason:atrial fibrillation, elevated troponin MEASUREMENTS -------- HEIGHT: 162.6 cm WEIGHT: 69.9 kg BP: 137/82 RVIDd: 3.9 cm (< 3.3) IVSd: 1.7 cm (0.6 - 1.1) LVIDd: 3.3 cm (3.9 - 5.3) LVPWd: 1.3 cm (0.6 - 1.1) IVSs: 2.1 cm LVIDs: 2.0 cm LVPWs: 1.8 cm LAESV Index (A-L): 44.05 ml/m Ao Diam: 3.1 cm (2.0 - 3.7) AV Cusp: 1.4 cm (1.5 - 2.6) LA Diam: 3.7 cm (2.7 - 3.8) MV EXCURSION: 10.090 mm (> 18.000) MV EF SLOPE: 32 mm/s (70 - 150) EPSS: 0.8 cm RAP: 5.00 mmHg RVSP: 65.41 mmHg FINDINGS -------- This was a technically adequate study. The left ventricular size is normal. There is moderate concentric left ventricular hypertrophy. O verall left ventricular systolic function is low-normal with, an EF between 50 - 55 %. Moderate asy mmetric septal hypertrophy with septal thickness 1.6 - 1.9 cm. The right ventricle is mild to moderately enlarged. LA is severely dilated >40 ml/m2 The right atrium is mildly enlarged. Interatrial and interventricular septum intact. There is no evidence of aortic regurgitation. There is no evidence of aortic stenosis. Avhrpsze-ui-qufwhu mitral regurgitation is present. Moderate to severe tricuspid regurgitation present. There is severe pulmonary hypertension. The r ight ventricular systolic pressure, as measured by Doppler, is 65.41mmHg. Trace/mild (physiologic) pulmonic regurgitation. The aortic root size is normal. IVC Not well visualized. There is no pericardial effusion. CONCLUSIONS -------- 1. The left ventricular size is normal. 2. There is moderate concentric left ventricular hypertrophy. 3. Overall left ventricular systolic function is low-normal with, an EF between 50 - 55 %. 4. Moderate asymmetric septal hypertrophy with septal thickness 1.6 - 1.9 cm. 5. The right ventricle is mild to moderately enlarged. 6. LA is severely dilated >40 ml/m2 7. The right atrium is mildly enlarged. 8. Ctkwidfr-[id number] mitral regurgitation is present. 9. Moderate to severe tricuspid regurgitation present. 10. There is severe pulmonary hypertension. 11. The right ventricular systolic pressure, as measured by Doppler, is 65.41mmHg. 12. Trace/mild (physiologic) pulmonic regurgitation. RAND BUTTER: Nita Arguello RDCS
[2021-07-24] MEDS: PRAVASTATIN SODIUM 40 MG TAB PO SCH (20:10)
[2021-07-24] MEDS: PARoxetine 20 MG TAB PO SCH (20:10)
--- NOTE | 2021-07-24 22:49 | PN ---
PROGRESS NOTE DATE OF SERVICE: 07/24/2021 REASON FOR FOLLOWUP: E coli UTI and bacteremia. INTERVAL HISTORY: The patient is afebrile. The patient is more awake and alert today. She is breathing comfortably. Denies having any chest pain, shortness of breath or cough. Abdominal pain is currently controlled. No diarrhea reported. PHYSICAL EXAMINATION: Blood pressure 127/73 with a pulse of 86, temperature 97.9. She is 96% on 2 L nasal cannula. General description is an elderly female lying in bed in no distress. Respiratory system: Unlabored breathing, decreased intensity of breath sounds. No wheeze. Heart S1, S2. Regular rate and rhythm. Abdomen soft, no tenderness. LABS: Hemoglobin is 13.1, white count 18.5, creatinine 1.3. DIAGNOSTIC IMPRESSION AND PLAN: Patient with Escherichia coli urinary tract infection and bacteremia. Patient is covered with Rocephin 2 grams daily. Waiting for the ultrasound to be completed and monitor clinical course closely. MMODL / IJN: [id number] /
[2021-07-25] MEDS: SODIUM CHLORIDE 0.9% 1,000 ML IV SCH ×3 (04:49→20:54)
[2021-07-25 06:49] LABS: Basophils % (A) 0 %; Eosinophils # (A) 0.1 k/uL (0-0.7); Eosinophils % (A) 1 %; HCT 43.8 % (34.0-46.0); HGB 13.7 gm/dL (11.4-16.0); Hypochromasia Slight; Lymphocytes # (A) 1.2 k/uL (1.0-4.8); Lymphocytes % (A) 11 %; MCHC 31.4 g/dL (31.0-37.0); MCV 101.9 fL (80.0-100.0); Macrocytosis Slight; Mean Platelet Volume 9.7; Monocytes # (A) 0.7 k/uL (0-1.0); Monocytes % (A) 6 %; Neutrophils # (A) 9.3 k/uL (1.3-7.7); Neutrophils % (A) 79 %; Platelet Count 166 k/uL (150-450); RDW 13.3 % (11.5-15.5); WBC 11.7 k/uL (3.8-10.6)
--- NOTE | 2021-07-25 08:02 | US ---
EXAMINATION TYPE: US kidneys/renal and bladder DATE OF EXAM: 07/25/2021 COMPARISON: CT abdomen and pelvis 2016 CLINICAL HISTORY: uti and bacteremia. EXAM MEASUREMENTS: Right Kidney: 11.7 x 5.8 x 5.2 cm Left Kidney: 13.6 x 6.7 x 7.1 cm Right Kidney: No hydronephrosis or masses seen Left Kidney: No hydronephrosis, shadowing foci, and lower pole cystic area Bladder: wnl Bilateral Jets seen: Yes There is no evidence for hydronephrosis at this point in time. Simple appearing 1.7 cm thin-walled cy st in the right kidney posterior medial aspect upper to midpole level coronal image [address] not brad rly identified on ultrasound images saved likely partially imaged near the pelvis on images 16 throug h 18. There is shadowing 7 mm calculus lower pole level left kidney image [address] coronal im age 47. Just inferior posterior to this there is 2.5 cm hypoechoic to anechoic lesion with increased through transmission felt to reflect stable thin walled proteinaceous cyst corresponding to axial kj ge 42. Smaller partially exophytic lesion on CT coronal image 50 along lateral aspect upper left kidn ey not clearly seen on ultrasound. The urinary bladder is satisfactorily distended. Bilateral ureteral jets are seen. IMPRESSION: No hydronephrosis is seen bilaterally.
[2021-07-25] MEDS: FUROSEMIDE 40 MG TAB PO SCH (09:16)
[2021-07-25] MEDS: LORATADINE 10 MG TAB PO SCH (09:16)
[2021-07-25] MEDS: APIXABAN 5 MG TAB PO SCH ×2 (09:16→20:54)
[2021-07-25] MEDS: METOPROLOL TARTRATE 25 MG TAB PO SCH ×3 (09:16→20:53)
[2021-07-25 10:02] LABS: Albumin 2.5 g/dL (3.5-5.0); Calcium 7.7 mg/dL (8.4-10.2); Potassium 3.7 mmol/L (3.5-5.1); Total Bilirubin 2.3 mg/dL (0.2-1.3); Total Protein 5.4 g/dL (6.3-8.2)
--- NOTE | 2021-07-25 11:05 | PN ---
PROGRESS NOTE DATE OF SERVICE: 07/24/2021 This 89-year-old white female came in with bacteremia and sepsis secondary to Gram- negative pneumonia. Waiting for repeat blood cultures to be negative. Going to do an abdominal and bladder ultrasound for renal insufficiency. Cardiovascular S1, S2. She is pleasantly confused. Lungs clear. GI soft. She remains on Rocephin for E coli UTI. Wait for ultrasound to be completed and possible discharge on oral antibiotics. Continue with Rocephin for bacteremia and sepsis secondary to E coli UTI. MMODL / IJN: [id number] /
--- NOTE | 2021-07-25 15:35 | PN ---
PROGRESS NOTE DATE OF SERVICE: 07/25/2021 REASON FOR FOLLOWUP: E coli UTI and bacteremia. INTERVAL HISTORY: The patient is afebrile. The patient is breathing comfortably. The patient denies having any chest pain, shortness of breath or cough. No abdominal pain or diarrhea. PHYSICAL EXAMINATION: Blood pressure 139/79, pulse 76, temperature 97.6. She is 97% on 2 L nasal cannula. General description is an elderly female up in the bed in no distress. Respiratory system: Unlabored breathing, decreased intensity of breath sounds. No wheeze. Heart S1, S2. Regular rate and rhythm. Abdomen soft, no tenderness. LABS: Hemoglobin is 13.7, white count 11.7, creatinine 1.05. E coli sensitive pathogen. Ultrasound of the abdomen did not show any acute changes. No hydronephrosis. DIAGNOSTIC IMPRESSION AND PLAN: Patient with admission to hospital with sepsis secondary to urinary source in this patient who did have Escherichia coli in the urine, and the blood cultures were negative white count trending down on Rocephin. Will transition to oral Ceftin for another 10 days on discharge to finish her course of therapy. Continue with supportive care. MMODL / IJN: [id number] /
--- NOTE | 2021-07-25 16:16 | P.PN ---
Subjective Progress Note Date: 07/25/21 This 89-year-old female with known coronary artery disease with previous bypass surgery, hypertension and hyperlipidemia and also atrial fibrillation on anticoagulation was admitted to the hospital with generalized weakness, hypotension and possible sepsis. She is diagnosed to have UTI and is being treated with antibiotics. Her blood pressures are negative. We saw the patient because of abnormal troponin values. Patient was also found to have high creatinine and probably dehydration and renal failure. The elevation of the troponin is felt to be related to renal failure. She did not have any chest pain. Her respiratory status is stable. Echo Cardigan showed an ejection fraction of 50-55%. Septal hypertrophy. Moderate to severe mitral and tricuspid regurgitation with evidence of pulmonary hypertension. Clinically patient doesn't appear to be in acute respiratory distress. No complaints of any chest pain. Recommend continuing current medical therapy. Objective - Vital Signs Vital signs: Vital Signs Temp 97.6 F 07/25/21 03:40 Pulse 76 07/25/21 03:40 Resp 18 07/25/21 03:40 BP 139/79 07/25/21 03:40 Pulse Ox 97 07/25/21 03:40 Intake & Output 07/24/21 07/25/21 07/25/21 18:59 06:59 18:59 Intake Total 480 1140 236 Balance 480 1140 236 Intake: Intake, IV Titration 1040 Amount Sodium Chloride 0.9% 1, 1040 000 ml @ 130 mls/hr IV . Q7H42M [facility] Rx#:[id number] Oral 480 100 236 Other: # Voids 3 2 3 - Exam GENERAL EXAM: Patient is alert and doesn't appear to be in any acute distress HEENT: Normocephalic. Normal reaction of pupils, equal size, normal range of extraocular motion. No erythema or exudates in the throat. NECK: No masses, no nuchal rigidity. CHEST: No chest wall deformity. LUNGS: Diminished air exchange HEART: S1 and S2 normal with no audible mumurs or gallops. Regular rhythm, fe morals equal on both sides.. ABDOMEN: No hepatosplenomegaly, normal bowel sounds, no guarding or rigidity. SKIN: No rashes CENTRAL NERVOUS SYSTEM: No focal deficits. EXTREMITIES: No cyanosis, clubbing or edema. - Labs CBC & Chem 7: 07/25/21 05:22 07/25/21 05:22 Labs: Abnormal Lab Results - Last 24 Hours (Table) 07/25/21 07/25/21 Range/Units 05:22 05:22 WBC 11.7 H (3.8-10.6) k/uL MCV 101.9 H (80.0-100.0) fL Neutrophils # 9.3 H (1.3-7.7) k/uL Chloride 109 H (98-107) mmol/L BUN 29 H (7-17) mg/dL Creatinine 1.05 H (0.52-1.04) mg/dL Calcium 7.7 L (8.4-10.2) mg/dL Total Bilirubin 2.3 H (0.2-1.3) mg/dL AST 51 H (14-36) U/L Alkaline Phosphatase 146 H (38-126) U/L Total Protein 5.4 L (6.3-8.2) g/dL Albumin 2.5 L (3.5-5.0) g/dL Microbiology - Last 24 Hours (Table) 07/22/21 18:15 Blood Culture Gram Stain - Final Blood Blood Culture - Final Escherichia coli 07/22/21 18:15 Blood Culture Gram Stain - Final Blood Blood Culture - Final Escherichia coli 07/22/21 17:40 Urine Culture - Final Urine,Catheterized Escherichia coli Assessment and Plan (1) CAD (coronary artery disease) of artery bypass graft Current Visit: Yes Status: Acute Code(s): I25.810 - ATHEROSCLEROSIS OF CABG W/O ANGINA PECTORIS SNOMED Code(s): 563216554 (2) Acute renal failure Current Visit: Yes Status: Acute Code(s): N17.9 - ACUTE KIDNEY FAILURE, UNSPECIFIED SNOMED Code(s): 35533433 (3) Dehydration Current Visit: Yes Status: Acute Code(s): E86.0 - DEHYDRATION SNOMED Code(s): 88583148 (4) Elevated troponin I level Current Visit: Yes Status: Acute Code(s): R77.8 - OTHER SPECIFIED ABNORMALITIES OF PLASMA PROTEINS SNOMED Code(s): 845044191 (5) Sepsis Current Visit: Yes Status: Acute Code(s): A41.9 - SEPSIS, UNSPECIFIED ORGANISM SNOMED Code(s): 35863728 (6) UTI (urinary tract infection) Current Visit: Yes Status: Acute Code(s): N39.0 - URINARY TRACT INFECTION, SITE NOT SPECIFIED SNOMED Code(s): 04696449 Plan: Her symptoms are related to unit tract infection and acute renal failure. Patient troponin is elevated but felt to be related to high creatinine and renal failure. Echo showed preserved LV function. Her vital signs are stable with controlled blood pressure. Will continue current medical therapy with hydration and antibiotics. We'll follow as needed
[2021-07-25] MEDS: PRAVASTATIN SODIUM 40 MG TAB PO SCH (20:53)
[2021-07-25] MEDS: PARoxetine 20 MG TAB PO SCH (20:54)
[2021-07-25] MEDS: ACETAMINOPHEN TAB 325 MG TAB PO PRN (20:54)
--- NOTE | 2021-07-26 01:38 | PN ---
PROGRESS NOTE 89-year-old white female with gram-negative bacteremia due to E coli UTI. Continue Rocephin [address] Shah wants her to stay 1 more day to see how she does. Going to try to wean off oxygen. She normally does not take oxygen at home. Cardiovascular S1, S2. Lungs clear. She is 96 on 2 L. Temperature 97.7, pulse 60 to 69, respiratory 16 to 18, blood pressure is 120/66. ASSESSMENT: 1. Gram-negative bacteremia secondary to E coli. 2. Sepsis secondary to E coli. 3. Encephalopathy secondary to urinary tract infection. PROGNOSIS: Guarded. Follow up in next 24 to 48 hours for possible discharge on oral antibiotics. MMODL / IJN: [id number] /
[2021-07-26] MEDS: SODIUM CHLORIDE 0.9% 1,000 ML IV SCH (04:52)
[2021-07-26] MEDS: FUROSEMIDE 40 MG TAB PO SCH (08:25)
[2021-07-26] MEDS: METOPROLOL TARTRATE 25 MG TAB PO SCH ×3 (08:25→20:35)
[2021-07-26] MEDS: APIXABAN 5 MG TAB PO SCH ×2 (08:25→20:35)
[2021-07-26] MEDS: LORATADINE 10 MG TAB PO SCH (08:25)
[2021-07-26] MEDS: ACETAMINOPHEN TAB 325 MG TAB PO PRN (13:00)
--- NOTE | 2021-07-26 14:48 | P.PN ---
Progress Note - Text Progress Note Date: 07/26/21 Presenting complaint: Tired Hospital course: I'm rounding for Dr. Vivek Tillman Patient presented for increased weakness. Patient's hard of hearing and limited historian. She was also in atrial fibrillation with a rapid ventricular rate. Patient's urine and blood culture positive E. coli. On IV ceftriaxone. July 26: Sitting up in a chair. Eating about 50%. Complaining of back pain. Heating pad and Tylenol added. Tired. Family is at bedside. Remains in atrial fibrillation. Heart rate controlled Review of systems: Was done for constitutional, cardiovascular, GI, pulmonary. relevant finding as above Active Medications Acetaminophen (Acetaminophen Tab 325 Mg Tab) 650 mg PO Q6HR PRN PRN Reason: Mild Pain or Fever > 100.5 Last Admin: 07/26/21 13:00 Dose: 650 mg Documented by: Alprazolam (Alprazolam 0.25 Mg Tab) 0.25 mg PO DAILY PRN PRN Reason: Anxiety Apixaban (Apixaban 5 Mg Tab) 5 mg PO BID [facility]; Protocol Last Admin: 07/26/21 08:25 Dose: 5 mg Documented by: Furosemide (Furosemide 40 Mg Tab) 40 mg PO DAILY [facility] Last Admin: 07/26/21 08:25 Dose: 40 mg Documented by: Ceftriaxone Sodium 2 gm/ (Sodium Chloride) 50 mls @ 100 mls/hr IVPB Q24HR [facility] Last Admin: 07/26/21 08:25 Dose: 100 mls/hr Documented by: Loratadine (Loratadine 10 Mg Tab) 10 mg PO DAILY [facility] Last Admin: 07/26/21 08:25 Dose: 10 mg Documented by: Metoprolol Tartrate (Metoprolol Tartrate 25 Mg Tab) 25 mg PO TID [facility] Last Admin: 07/26/21 08:25 Dose: 25 mg Documented by: Naloxone HCl (Naloxone 0.4 Mg/Ml 1 Ml Vial) 0.2 mg IV Q2M PRN PRN Reason: Opioid Reversal Nitroglycerin (Nitroglycerin Sl Tabs 0.4 Mg Tab) 0.4 mg SUBLINGUAL Q5M PRN PRN Reason: Chest Pain Paroxetine HCl (Paroxetine 20 Mg Tab) 20 mg PO HS [facility] Last Admin: 07/25/21 20:54 Dose: 20 mg Documented by: Pravastatin Sodium (Pravastatin Sodium 40 Mg Tab) 40 mg PO [facility] Last Admin: 07/25/21 20:53 Dose: 40 mg Documented by: On examination: VITAL SIGNS: [97.9, 78, 17, 155/88, 99% on room air] GENERAL APPEARANCE: Sitting up in a chair, awake, slightly uncomfortable. HEENT: Normal external appearance of nose and ear. Oral cavity normal EYES: Pupils equal. Conjunctiva normal. NECK: JVD not raised. Mass not palpable. RESPIRATORY: Respiratory effort normal. Decreased breath sounds CARDIOVASCULAR: Irregular heart sounds, No edema. ABDOMEN: Soft. Liver and spleen not palpable. No tenderness. No mass palpable. PSYCHIATRY: Able tonsil simple questions. INVESTIGATIONS, reviewed in the clinical context: White count 11.7 hemoglobin 13.7 potassium 3.7 BUN 29 creatinine 0.74 Ultrasound kidney bladder: Left kidney stone. 2-D echocardiogram: EF 50-55%. Moderate to severe MR, moderate to severe TR, severe pulmonary hypertension EKG tracing personally reviewed by me-atrial fibrillation, right bundle branch block pattern Chest x-ray film: Interstitial prominence Assessment and plan: -Acute UTI with cystitis causing sepsis urine and blood culture positive for E. coli IV ceftriaxone -Acute delirium/metabolic encephalopathy from sepsis: Clinically better -Sepsis with blood cultures positive for E. coli: Improving IV fluids and antibiotics -Persistent atrial fibrillation with a rapid ventricular rate on presentation, now better controlled Eliquis 5 mg twice a day, Lopressor 25 mg 3 times a day -Hyperlipidemia Pravachol 40 mg daily at bedtime -Moderate to severe mitral and tricuspid regurgitation Follow clinically -Severe secondary pulmonary hypertension Follow clinically -Cognitive impairment -Acute kidney injury is a combination of prerenal and ATN from sepsis and decreased oral intake: Better Initial creatinine 2.84. Now down to 0.74 -Primary osteoarthritis multiple joints bilateral Tylenol when necessary. Use heating pad for her back pain. -Anxiety depression On Paxil 20 mg daily at bedtime -CAD with a prior history of stent Lopressor, Pravachol -Chronic urinary stress incontinence Continue IV ceftriaxone. Use a heating pad for his back pain. Other medications to continue. Appetite is improving. Care was discussed with the family the bedside and the nurse. DC IV fluids.
--- NOTE | 2021-07-26 20:18 | PN ---
PROGRESS NOTE DATE OF SERVICE: 07/26/2021 REASON FOR FOLLOWUP: E coli UTI and bacteremia. INTERVAL HISTORY: The patient is afebrile. The patient is breathing comfortably. She has been complaining of pain to the lower back area. The patient denies having any chest pain or shortness of breath or cough. No abdominal pain or diarrhea. PHYSICAL EXAMINATION: Blood pressure 122/71 with a pulse of 78, temperature 98.2. She is 93% on 2 L nasal cannula. General description is an elderly female lying in bed in no distress. Respiratory system: Unlabored breathing. Clear to auscultation anteriorly. Heart S1, S2. Regular rate and rhythm. Abdomen soft, no tenderness. LABS: Creatinine 0.74. DIAGNOSTIC IMPRESSION AND PLAN: Patient with Escherichia coli bacteremia secondary to urinary source which is a sensitive pathogen. Patient's kidney function has improved. Ultrasound was negative for any obstructive uropathy or stones. Plan is to continue with Rocephin. Finish therapy with oral Ceftin and close outpatient followup. MMODL / IJN: [id number] /
[2021-07-26] MEDS: PRAVASTATIN SODIUM 40 MG TAB PO SCH (20:35)
[2021-07-26] MEDS: PARoxetine 20 MG TAB PO SCH (20:35)
[2021-07-27] MEDS: METOPROLOL TARTRATE 25 MG TAB PO SCH ×3 (09:13→21:18)
[2021-07-27] MEDS: APIXABAN 5 MG TAB PO SCH ×2 (09:13→20:07)
[2021-07-27] MEDS: FUROSEMIDE 40 MG TAB PO SCH (09:13)
[2021-07-27] MEDS: ACETAMINOPHEN TAB 325 MG TAB PO PRN (12:55)
--- NOTE | 2021-07-27 19:03 | P.PN ---
Progress Note - Text Progress Note Date: 07/27/21 Presenting complaint: Tired Hospital course: I'm rounding for Dr. Vivek Tillman Patient presented for increased weakness. Patient's hard of hearing and limited historian. She was also in atrial fibrillation with a rapid ventricular rate. Patient's urine and blood culture positive E. coli. On IV ceftriaxone. July 26: Sitting up in a chair. Eating about 50%. Complaining of back pain. Heating pad and Tylenol added. Tired. Family is at bedside. Remains in atrial fibrillation. Heart rate controlled July 27: Sitting up in a chair. His other comfortable. Oral intake fair. Back pain better. Tired. Atrial fibrillation. IV ceftriaxone Review of systems: Was done for constitutional, cardiovascular, GI, pulmonary. relevant finding as above Active Medications Acetaminophen (Acetaminophen Tab 325 Mg Tab) 650 mg PO Q6HR PRN PRN Reason: Mild Pain or Fever > 100.5 Last Admin: 07/27/21 12:55 Dose: 650 mg Documented by: Alprazolam (Alprazolam 0.25 Mg Tab) 0.25 mg PO DAILY PRN PRN Reason: Anxiety Apixaban (Apixaban 5 Mg Tab) 5 mg PO BID [facility]; Protocol Last Admin: 07/27/21 09:13 Dose: 5 mg Documented by: Furosemide (Furosemide 40 Mg Tab) 40 mg PO DAILY [facility] Last Admin: 07/27/21 09:13 Dose: 40 mg Documented by: Ceftriaxone Sodium 2 gm/ (Sodium Chloride) 50 mls @ 100 mls/hr IVPB Q24HR [facility] Last Admin: 07/27/21 09:54 Dose: 100 mls/hr Documented by: Metoprolol Tartrate (Metoprolol Tartrate 25 Mg Tab) 25 mg PO TID [facility] Last Admin: 07/27/21 15:35 Dose: 25 mg Documented by: Naloxone HCl (Naloxone 0.4 Mg/Ml 1 Ml Vial) 0.2 mg IV Q2M PRN PRN Reason: Opioid Reversal Nitroglycerin (Nitroglycerin Sl Tabs 0.4 Mg Tab) 0.4 mg SUBLINGUAL Q5M PRN PRN Reason: Chest Pain Paroxetine HCl (Paroxetine 20 Mg Tab) [address] [facility] Last Admin: 07/26/21 20:35 Dose: 20 mg Documented by: Pravastatin Sodium (Pravastatin Sodium 40 Mg Tab) 40 mg [address] [facility] Last Admin: 07/26/21 20:35 Dose: 40 mg Documented by: On examination: VITAL SIGNS: 98.3, 75, 18, 138.69, 95% room air GENERAL APPEARANCE: Sitting in a recliner awake, comfortable. HEENT: Normal external appearance of nose and ear. Oral cavity normal EYES: Pupils equal. Conjunctiva normal. NECK: JVD not raised. Mass not palpable. RESPIRATORY: Respiratory effort normal. Decreased breath sounds CARDIOVASCULAR: Irregular heart sounds, No edema. ABDOMEN: Soft. Liver and spleen not palpable. No tenderness. No mass palpable. PSYCHIATRY: Able to answer simple questions. INVESTIGATIONS, reviewed in the clinical context: White count 11.7 hemoglobin 13.7 potassium 3.7 BUN 29 creatinine 0.74 Ultrasound kidney bladder: Left kidney stone. 2-D echocardiogram: EF 50-55%. Moderate to severe MR, moderate to severe TR, severe pulmonary hypertension EKG tracing personally reviewed by me-atrial fibrillation, right bundle branch block pattern Chest x-ray film: Interstitial prominence Assessment and plan: -Acute UTI with cystitis causing sepsis urine and blood culture positive for E. coli IV ceftriaxone -Acute delirium/metabolic encephalopathy from sepsis: Clinically better -Sepsis with blood cultures positive for E. coli: Improving IV fluids and antibiotics -Persistent atrial fibrillation with a rapid ventricular rate on presentation, now better controlled Eliquis 5 mg twice a day, Lopressor 25 mg 3 times a day -Hyperlipidemia Pravachol 40 mg daily at bedtime -Moderate to severe mitral and tricuspid regurgitation Follow clinically -Severe secondary pulmonary hypertension Follow clinically -Cognitive impairment -Acute kidney injury is a combination of prerenal and ATN from sepsis and decreased oral intake: Better Initial creatinine 2.84. Now down to 0.74 -Primary osteoarthritis multiple joints bilateral Tylenol when necessary. Use heating pad for her back pain. -Anxiety depression On Paxil 20 mg daily at bedtime -CAD with a prior history of stent Lopressor, Pravachol -Chronic urinary stress incontinence -Disposition: Home with help Continue IV ceftriaxone. Other medications to continue. Appetite is improving. . Plan is to discharge patient home with Ceftin.
[2021-07-27] MEDS: PRAVASTATIN SODIUM 40 MG TAB PO SCH (20:07)
[2021-07-27] MEDS: PARoxetine 20 MG TAB PO SCH (20:07)
--- NOTE | 2021-07-28 00:22 | PN ---
PROGRESS NOTE DATE OF SERVICE: 07/27/2021 REASON FOR FOLLOWUP: E coli UTI and bacteremia. INTERVAL HISTORY: Patient is afebrile. The patient is breathing comfortably. Patient denies having any chest pain, shortness of breath or cough. No nausea, no vomiting. No abdominal pain. She has complained of some low back pain yesterday. However, the symptoms resolved. PHYSICAL EXAMINATION: Blood pressure 111/60 with a pulse of 78, temperature 98.4. She is 92% on room air. General description is an elderly female up in the chair in no distress. Respiratory system: Unlabored breathing, decreased intensity of breath sounds. No wheeze. Heart S1, S2. Regular rate and rhythm. Abdomen: Soft. No tenderness. LABS: No new labs have been obtained today. DIAGNOSTIC IMPRESSION AND PLAN: Patient with an E coli UTI and bacteremia. The patient seems to have shown overall improvement on Rocephin. Plan is to finish therapy with oral Ceftin to finish a 2 week course of therapy and close outpatient followup. MMODL / IJN: [id number] /
[2021-07-28 06:14] LABS: Basophils % (A) 0 %; Eosinophils # (A) 0.2 k/uL (0-0.7); Eosinophils % (A) 1 %; HCT 41.5 % (34.0-46.0); HGB 13.4 gm/dL (11.4-16.0); Lymphocytes # (A) 1.3 k/uL (1.0-4.8); Lymphocytes % (A) 12 %; MCH 32.2 pg (25.0-35.0); MCHC 32.1 g/dL (31.0-37.0); MCV 100.3 fL (80.0-100.0); Mean Platelet Volume 8.6; Monocytes # (A) 0.7 k/uL (0-1.0); Monocytes % (A) 6 %; Neutrophils # (A) 8.6 k/uL (1.3-7.7); Neutrophils % (A) 79 %; Platelet Count 243 k/uL (150-450); RBC 4.14 m/uL (3.80-5.40); RDW 13.3 % (11.5-15.5); WBC 10.9 k/uL (3.8-10.6)
[2021-07-28] MEDS: METOPROLOL TARTRATE 25 MG TAB PO SCH ×3 (09:07→20:06)
[2021-07-28] MEDS: APIXABAN 5 MG TAB PO SCH ×2 (09:08→20:06)
[2021-07-28] MEDS: FUROSEMIDE 40 MG TAB PO SCH (09:08)
[2021-07-28 11:32] LABS: African American GFR (CKD) 89.8 (60.0-200.0); Anion Gap 12.9 mmol/L (10.00-18.00); BUN/Creat Ratio 25.54 Ratio (12.00-20.00); Blood Urea Nitrogen 17.8 mg/dL (9.0-27.0); Calcium 7.5 mg/dL (8.7-10.3); Carbon Dioxide 30.7 mmol/L (20.0-27.5); Non-African American GFR(CKD) 77.5 (60.0-200.0); Potassium 2.6 mmol/L (3.5-5.5)
[2021-07-28] MEDS: POTASSIUM CHLORIDE ER 20 MEQ TAB.ER PO SCH ×2 (12:12→14:54)
--- NOTE | 2021-07-28 17:38 | PN ---
PROGRESS NOTE DATE OF SERVICE: 07/28/2021 REASON FOR FOLLOWUP: E coli UTI and bacteremia. INTERVAL HISTORY: Patient is afebrile. The patient is breathing comfortably. Denies having any chest pain. No shortness of breath, cough, no abdominal pain or diarrhea. PHYSICAL EXAMINATION: Blood pressure 126/80 with a pulse of 66, temperature 98.2. She is 96% on 1 L nasal cannula. General description is an elderly female up in the bed in no distress. Respiratory system: Unlabored breathing, decreased intensity of breath sounds, no wheeze. Heart S1, S2. Regular rate and rhythm. Abdomen soft, no tenderness. LABS: Hemoglobin 13.4, white count 10.9, potassium down to 2.6 creatinine 0.7. Blood culture repeat has been negative. DIAGNOSTIC IMPRESSION AND PLAN: Patient with an E coli urinary tract infection and bacteremia. Patient ultrasound was negative for any hydronephrosis abnormality. Patient seems to be clinically responding to the Rocephin. Plan is to finish therapy with oral Ceftin. Family at the bedside. Their questions and concerns were answered. MMODL / IJN: [id number] /
[2021-07-28] MEDS: PARoxetine 20 MG TAB PO SCH (20:06)
[2021-07-28] MEDS: PRAVASTATIN SODIUM 40 MG TAB PO SCH (20:06)
--- NOTE | 2021-07-28 20:41 | P.PN ---
Progress Note - Text Progress Note Date: 07/28/21 Presenting complaint: Tired Hospital course: I'm rounding for Dr. Vivek Tillman Patient presented for increased weakness. Patient's hard of hearing and limited historian. She was also in atrial fibrillation with a rapid ventricular rate. Patient's urine and blood culture positive E. coli. On IV ceftriaxone. July 26: Sitting up in a chair. Eating about 50%. Complaining of back pain. Heating pad and Tylenol added. Tired. Family is at bedside. Remains in atrial fibrillation. Heart rate controlled July 27: Sitting up in a chair. His other comfortable. Oral intake fair. Back pain better. Tired. Atrial fibrillation. IV ceftriaxone July 28: Sitting in the recliner. 2 L nasal cannula. Comfortable. IV ceftriaxone. recycle worker looking into rehab placement. Eating about 25-50% Review of systems: Was done for constitutional, cardiovascular, GI, pulmonary. r elevant finding as above Active Medications Acetaminophen (Acetaminophen Tab 325 Mg Tab) 650 mg PO Q6HR PRN PRN Reason: Mild Pain or Fever > 100.5 Last Admin: 07/27/21 12:55 Dose: 650 mg Documented by: Alprazolam (Alprazolam 0.25 Mg Tab) 0.25 mg PO DAILY PRN PRN Reason: Anxiety Apixaban (Apixaban 5 Mg Tab) 5 mg PO BID [facility]; Protocol Last Admin: 07/28/21 20:06 Dose: 5 mg Documented by: Furosemide (Furosemide 40 Mg Tab) 40 mg PO DAILY [facility] Last Admin: 07/28/21 09:08 Dose: 40 mg Documented by: Ceftriaxone Sodium 2 gm/ (Sodium Chloride) 50 mls @ 100 mls/hr IVPB Q24HR [facility] Last Admin: 07/28/21 09:07 Dose: 100 mls/hr Documented by: Metoprolol Tartrate (Metoprolol Tartrate 25 Mg Tab) 25 mg PO TID [facility] Last Admin: 07/28/21 20:06 Dose: 25 mg Documented by: Naloxone HCl (Naloxone 0.4 Mg/Ml 1 Ml Vial) 0.2 mg IV Q2M PRN PRN Reason: Opioid Reversal Nitroglycerin (Nitroglycerin Sl Tabs 0.4 Mg Tab) 0.4 mg SUBLINGUAL Q5M PRN PRN Reason: Chest Pain Paroxetine HCl (Paroxetine 20 Mg Tab) 20 mg PO [facility] Last Admin: 07/28/21 20:06 Dose: 20 mg Documented by: Pravastatin Sodium (Pravastatin Sodium 40 Mg Tab) 40 mg PO [facility] Last Admin: 07/28/21 20:06 Dose: 40 mg Documented by: On examination: VITAL SIGNS: 98.2, 66, 17, 126/80, 96% on 2 L GENERAL APPEARANCE: Sitting in a recliner awake, comfortable. HEENT: Normal external appearance of nose and ear. Oral cavity normal EYES: Pupils equal. Conjunctiva normal. NECK: JVD not raised. Mass not palpable. RESPIRATORY: Respiratory effort normal. Decreased breath sounds CARDIOVASCULAR: Irregular heart sounds, No edema. ABDOMEN: Soft. Liver and spleen not palpable. No tenderness. No mass palpable. PSYCHIATRY: Able to answer simple questions. INVESTIGATIONS, reviewed in the clinical context: July 28: White count 10.9 hemoglobin 13.4 potassium 2.6, repeat 4.2 creatinine 0.7 White count 11.7 hemoglobin 13.7 potassium 3.7 BUN 29 creatinine 0.74 Ultrasound kidney bladder: Left kidney stone. 2-D echocardiogram: EF 50-55%. Moderate to severe MR, moderate to severe TR, severe pulmonary hypertension EKG tracing personally reviewed by me-atrial fibrillation, right bundle branch block pattern Chest x-ray film: Interstitial prominence Assessment and plan: -Acute UTI with cystitis causing sepsis urine and blood culture positive for E. coli IV ceftriaxone -Acute delirium/metabolic encephalopathy from sepsis: Clinically better -Sepsis with blood cultures positive for E. coli: Improving IV fluids and antibiotics -Persistent atrial fibrillation with a rapid ventricular rate on presentation, now better controlled Eliquis 5 mg twice a day, Lopressor 25 mg 3 times a day -Hyperlipidemia Pravachol 40 mg daily at bedtime -Moderate to severe mitral and tricuspid regurgitation Follow clinically -Severe secondary pulmonary hypertension Follow clinically -Cognitive impairment -Acute kidney injury is a combination of prerenal and ATN from sepsis and decreased oral intake: Better Initial creatinine 2.84. Now down to 0.74 -Primary osteoarthritis multiple joints bilateral Tylenol when necessary. Use heating pad for her back pain. -Anxiety depression On Paxil 20 mg daily at bedtime -CAD with a prior history of stent Lopressor, Pravachol -Chronic urinary stress incontinence -Disposition: Home with help Discussed with the nurse. And the patient. Looking for inpatient rehab. Also consult Dr. Miller
[2021-07-28 21:25] VITALS: RESP 20
[2021-07-29 05:12] VITALS: TEMP 98.6
[2021-07-29] MEDS: METOPROLOL TARTRATE 25 MG TAB PO SCH (08:25)
[2021-07-29] MEDS: FUROSEMIDE 40 MG TAB PO SCH (08:26)
[2021-07-29] MEDS: APIXABAN 5 MG TAB PO SCH (08:26)
[2021-07-29 08:35] VITALS: BP 127/70; PULSE 79
--- NOTE | 2021-07-29 09:25 | P.CONS ---
History of Present Illness - Chief Complaint Medical debility/generalized weakness - History of Present Illness I had the opportunity to see patient for inpatient rehab consultation with regard to generalized weakness. She was admitted to [facility] July 22 with one-week duration of generalized weakness. Seen in consultation by Dr. Shah. Seen by cardiology who notes cardiac disease including atrial flutter with RVR, RBBB, LAFB. Abdominal ultrasound negative for hydronephrosis right or left. Chest x-ray demonstrates cardiomegaly and decreased effusions and perhaps mild pulmonary fibrosis. Head CT with cerebral atrophy. Started therapies. PT reports supervision for bed mobility, transfers, gait 50 feet with roller walker. OT reports minimal assistance for upper dressing, maximal assistance for lower dressing, moderate assistance for bathing and total assistance for toileting. Moderate assistance functional mobility and transfer. OT recommending subacute rehab. Previous functional history as elicited from patient: 89-year-old right-handed white female who is a , lives in a first-floor apartment alone. Describes independent with own cooking, laundry, sitdown shower and gait without device. Does not drive. PCP Dr. Marissa Tillman. Denies tobacco or alcohol. Review of Systems Review of systems: ENT: Denies sneezes or discharge. Eyes: Denies discharge or photophobia. Cardiac: Denies chest pain or palpitation. Pulmonary: Denies cough or shortness of breath. Breast: Denies discharge or lumps. Gastrointestinal: Denies nausea, emesis, constipation, diarrhea. Genitourinary: Denies discharge or frequency. Musculoskeletal: Denies muscle or bone aches. Neurologic: Generalized weakness. Endocrine: Denies shakes or sweats. Oncology: Denies cancers. Dermatologic: Denies rash, itching, pruritus. ALLERGY/immunology: Denies sneezes, rashes. Past Medical History Past Medical History: Coronary Artery Disease (CAD), CVA/TIA, Eye Disorder, GERD/Reflux, Hyperlipidemia, Hypertension, Skin Disorder Additional Past Medical History / Comment(s): 09/17/14 Pt admitted to floor s/p PTCA and stenting mid LAD. Other HX: macular degeneration R eye, psoriasis, bladder incontinence. CVA 2019. History of Any Multi-Drug Resistant Organisms: None Reported Past Surgical History: Coronary Bypass/CABG, Heart Catheterization With Stent, H ysterectomy Additional Past Surgical History / Comment(s): 09/17/14 PTCA and stenting mid LAD just before diagonal branch. 08/29/13 triple bypass Past Anesthesia/Blood Transfusion Reactions: No Reported Reaction Date of Last Stent Placement:: 2013 Past Psychological History: Anxiety, Depression Additional Psychological History / Comment(s): Pt resides in a senior apartment. Pt is independent. She manages her own medications, cooks, cleans and performs all of her own ADL's. She does not use any devices. Smoking Status: Never smoker Past Alcohol Use History: None Reported Past Drug Use History: None Reported - Past Family History Father Family Medical History: Coronary Artery Disease (CAD), Myocardial Infarction ([place]) Additional Family Medical History / Comment(s): Father at age 86yrs. Brother(s) Family Medical History: Coronary Artery Disease (CAD), Myocardial Infarction ([place]) Additional Family Medical History / Comment(s): Pt had 2 brothers of [place]'s one was 45yrs old, and the other 55yrs old. She had one brother who had a blood clot in his lung post nephrectomy. Mother Family Medical History: No Reported History Additional Family Medical History / Comment(s): Mother at age 97yrs. Medications and Allergies Home Medications Medication Instructions Recorded Confirmed Type PARoxetine [Paxil] 20 mg PO HS 09/14/14 07/22/21 History Nitroglycerin Sl Tabs [Nitrostat] 0.4 mg SUBLINGUAL Q5M PRN #25 tab 09/18/14 07/22/21 Rx Acetaminophen Tab [Tylenol] 500 mg PO QID PRN 07/22/21 07/22/21 History Apixaban [Eliquis] 5 mg PO BID 07/22/21 07/22/21 History Furosemide [Lasix] 40 mg PO DAILY 07/22/21 07/22/21 History Metoprolol Tartrate [Lopressor] 25 mg PO TID 07/22/21 07/22/21 History Pravastatin Sodium [Pravachol] 40 mg PO HS 07/22/21 07/22/21 History ALPRAZolam [Xanax] 0.25 mg PO DAILY PRN #3 tab 07/28/21 Rx Cefuroxime Axetil [Ceftin] 500 mg PO BID #10 tab 07/28/21 Rx Allergies Allergy/AdvReac Type Severity Reaction Status Date / Time Sulfa (Sulfonamide Allergy Rash/Hives Verified 07/22/21 17:27 Antibiotics) Physical Exam Vitals: Vital Signs Temp Pulse Pulse Resp BP BP Pulse Ox 07/29/21 08:34 79 127/70 07/29/21 05:00 98.6 F 76 20 130/73 93 L 07/28/21 19:40 99.3 F 79 20 104/60 92 L 07/28/21 12:37 98.2 F 66 17 126/80 96 Intake and Output 07/28/21 07/29/21 07/29/21 22:59 06:59 14:59 Intake Total 250 100 Balance 250 100 Intake: Intake, IV Titration 50 Amount cefTRIAXone 2 gm In 50 Sodium Chloride 0.9% 50 ml @ 100 mls/hr IVPB Q24HR [facility] Rx#:[id number] Oral 200 100 Other: Voiding Method Toilet Bedside Commode Diaper # Voids 2 Skin: Atrophic, intact. General: Medium build and comfortable appearance. Head: Normocephalic, atraumatic. Eyes: Symmetric. Pupils equal round. Ears: Symmetric. Hearing within normal limits. Mouth: Clear. Neck: Supple. Carotid without bruit. Cardiac: Regular rate and rhythm. Lungs: Clear anteriorly and posteriorly. Abdomen: Soft active nontender. Extremities: Normal tone. Neurological: Mental status: Alert, cooperative, pleasant. Cranial nerves: Symmetric facial tone and trapezius. Motor: Active movement all 4 limbs. Sensation: Intact throughout. DTRs: Symmetric and equal throughout. Mobility: Sits with standby assistance. Results CBC & Chem 7: 07/28/21 05:35 07/28/21 19:05 Labs: Abnormal Lab Results - Last 24 Hours (Table) 07/28/21 Range/Units 05:35 Potassium 2.6 L* (3.5-5.5) mmol/L Carbon Dioxide 30.7 H (20.0-27.5) mmol/L BUN/Creatinine Ratio 25.54 H (12.00-20.00) Ratio Calcium 7.5 L (8.7-10.3) mg/dL Microbiology - Last 24 Hours (Table) 07/27/21 06:23 Blood Culture - Preliminary Blood No Growth after 48 hours Assessment and Plan (1) Acute renal failure Current Visit: Yes Status: Acute Code(s): N17.9 - ACUTE KIDNEY FAILURE, UNSPECIFIED SNOMED Code(s): 73623193 (2) CAD (coronary artery disease) of artery bypass graft Current Visit: Yes Status: Acute Code(s): I25.810 - ATHEROSCLEROSIS OF CABG W/O ANGINA PECTORIS SNOMED Code(s): 518681871 (3) Dehydration Current Visit: Yes Status: Acute Code(s): E86.0 - DEHYDRATION SNOMED Code(s): 12733065 (4) Elevated troponin I level Current Visit: Yes Status: Acute Code(s): R77.8 - OTHER SPECIFIED ABNORMALITIES OF PLASMA PROTEINS SNOMED Code(s): 794088301 (5) Lactic acidosis Current Visit: Yes Status: Acute Code(s): E87.2 - ACIDOSIS SNOMED Code(s): 73422527 (6) Sepsis Current Visit: Yes Status: Acute Code(s): A41.9 - SEPSIS, UNSPECIFIED ORGANISM SNOMED Code(s): 50153559 (7) UTI (urinary tract infection) Current Visit: Yes Status: Acute Code(s): N39.0 - URINARY TRACT INFECTION, SITE NOT SPECIFIED SNOMED Code(s): 40462710 Plan: Comments and plan: At this time I am unclear specific diagnosis or etiology of patient's generalized weakness. He specifically diagnoses would be required for full inpatient rehab. Should note that physical therapy reports patient required supervision or no real physical assist for functional debility and gait with device. Thus patient does not have multidisciplinary team need and would not meet insurance criteria. I do agree with OT recommendation the patient unsafe on own and would agree with recommendation subacute rehab at this time.
[2021-07-29 11:53] VITALS: BMI 29.9
--- NOTE | 2021-07-29 23:04 | P.DS ---
Providers Date of admission: 07/22/21 19:32 Expected date of discharge: 07/29/21 Attending physician: Vivek Tillman Consults: 07/23/21 13:25 Consult Physician Stat Consulting Provider: Lewis Shah Consult Reason/Comments: positive blood cultures Do you want consulting provider notified?: Yes 07/23/21 15:40 Consult Physician Routine Consulting Provider: Rip Chavez Consult Reason/Comments: afib rvr Do you want consulting provider notified?: Yes 07/28/21 20:41 Consult Physician Routine Consulting Provider: Urban Tolentino Consult Reason/Comments: [facility] rehab Do you want consulting provider notified?: Yes Primary care physician: Marissa Tillman [facility] Course: Presenting complaint: Tired Hospital course: I'm rounding for Dr. Vivek Tillman Patient presented for increased weakness. Patient's hard of hearing and limited historian. She was also in atrial fibrillation with a rapid ventricular rate. Patient's urine and blood culture positive E. coli. On IV ceftriaxone. Patient responded well. Oral intake improved. IV fluids. Today: Discussed with patient daughter. And the patient. Also the mental health case manager. Daughter will take the patient home. Patient completed a course of Ceftin at home. Patient Zestril) Claritin is being discontinued. Questions answered. Discussion and discharge planning more than 35 minutes Consultation: Dr. Shah from [place] On examination: VITAL SIGNS: 98.6, 76, 20, 130/73, 93% on room air GENERAL APPEARANCE: Sitting in a recliner awake, comfortable. HEENT: Normal external appearance of nose and ear. Oral cavity normal EYES: Pupils equal. Conjunctiva normal. NECK: JVD not raised. Mass not palpable. RESPIRATORY: Respiratory effort normal. Decreased breath sounds CARDIOVASCULAR: Irregular heart sounds, No edema. ABDOMEN: Soft. Liver and spleen not palpable. No tenderness. No mass palpable. PSYCHIATRY: Able to answer simple questions. INVESTIGATIONS, reviewed in the clinical context: Urine culture: E. coli July 28: White count 10.9 hemoglobin 13.4 potassium 2.6, repeat 4.2 creatinine 0.7 White count 11.7 hemoglobin 13.7 potassium 3.7 BUN 29 creatinine 0.74 Ultrasound kidney bladder: Left kidney stone. 2-D echocardiogram: EF 50-55%. Moderate to severe MR, moderate to severe TR, severe pulmonary hypertension EKG tracing personally reviewed by me-atrial fibrillation, right bundle branch block pattern Chest x-ray film: Interstitial prominence Assessment and plan: -Acute UTI with cystitis causing sepsis urine and blood culture positive for E. coli IV ceftriaxone. Complete 5 more days of Ceftin 250 mg twice a day at home -Acute delirium/metabolic encephalopathy from sepsis: Improved -Sepsis with blood cultures positive for E. coli: Improving IV fluids and antibiotics -Persistent atrial fibrillation with a rapid ventricular rate on presentation, now better controlled Eliquis 5 mg twice a day, Lopressor 25 mg 3 times a day -Hyperlipidemia Pravachol 40 mg daily at bedtime -Moderate to severe mitral and tricuspid regurgitation Follow clinically -Severe secondary pulmonary hypertension Follow clinically -Left kidney stone asymptomatic -Cognitive impairment -Acute kidney injury is a combination of prerenal and ATN from sepsis and decreased oral intake: Better Initial creatinine 2.84. Now down to 0.74 -Primary osteoarthritis multiple joints bilateral Tylenol when necessary. Use heating pad for her back pain. -Anxiety depression On Paxil 20 mg daily at bedtime -CAD with a prior history of stent Lopressor, Pravachol -Chronic urinary stress incontinence Disposition: Home Plan - Discharge Summary Discharge Rx Participant: No New Discharge Prescriptions: New Cefuroxime Axetil [Ceftin] 500 mg PO BID #10 tab Continue PARoxetine [Paxil] 20 mg PO HS Nitroglycerin Sl Tabs [Nitrostat] 0.4 mg SUBLINGUAL Q5M PRN #25 tab PRN Reason: Chest Pain Furosemide [Lasix] 40 mg PO DAILY Apixaban [Eliquis] 5 mg PO BID Acetaminophen Tab [Tylenol] 500 mg PO QID PRN PRN Reason: Pain ALPRAZolam [Xanax] 0.25 mg PO DAILY PRN #3 tab PRN Reason: Anxiety Pravastatin Sodium [Pravachol] 40 mg PO HS Metoprolol Tartrate [Lopressor] 25 mg PO TID Discontinued lisinopriL [Zestril] 5 mg PO DAILY Loratadine [Claritin] 10 mg PO DAILY Discharge Medication List PARoxetine [Paxil] 20 mg PO HS 09/14/14 [History] Nitroglycerin Sl Tabs [Nitrostat] 0.4 mg SUBLINGUAL Q5M PRN #25 tab 09/18/14 [Rx] Acetaminophen Tab [Tylenol] 500 mg PO QID PRN 07/22/21 [History] Apixaban [Eliquis] 5 mg PO BID 07/22/21 [History] Furosemide [Lasix] 40 mg PO DAILY 07/22/21 [History] Metoprolol Tartrate [Lopressor] 25 mg PO TID 07/22/21 [History] Pravastatin Sodium [Pravachol] 40 mg PO HS 07/22/21 [History] ALPRAZolam [Xanax] 0.25 mg PO DAILY PRN #3 tab 07/28/21 [Rx] Cefuroxime Axetil [Ceftin] 500 mg PO BID #10 tab 07/28/21 [Rx] Follow up Appointment(s)/Referral(s): Jaki Steen MD [STAFF PHYSICIAN] - 08/12/21 3:15 pm (appt is at the [place] location in front of [address]) Marissa Tillman MD [Primary Care Provider] - 1-2 days (office is closed through aug 03.patient will have to call and schedule own appt.) [facility] [NON-STA[facility]] - As Needed Patient Instructions/Handouts: Cefuroxime (By mouth), Alprazolam (By mouth), Dehydration (DC), Acute Kidney Injury (DC), Urinary Tract Infection in Older Adults (DC) Discharge Disposition: HOME WITH HOME HEALTH SERVICES
== END 2021-07-29 12:23 | disposition home health service (06) | DRG 871 ==
LOC: EC 15:35 → 3SCARD 19:32 → 5NMEDONC 07-26 16:00
PROVIDERS: ADMIT Family Medicine; ATTEND Family Medicine
DX: A41.51 Sepsis due to Escherichia coli [E. coli] (principal); G93.41 Metabolic encephalopathy; N17.0 Acute kidney failure with tubular necrosis; E87.2 Acidosis; I45.2 Bifascicular block; I25.810 Atherosclerosis of coronary artery bypass graft(s) without angina pectoris; I48.19 Other persistent atrial fibrillation; I48.92 Unspecified atrial flutter; J90 Pleural effusion, not elsewhere classified; N30.91 Cystitis, unspecified with hematuria; E78.5 Hyperlipidemia, unspecified; E86.0 Dehydration; E87.6 Hypokalemia; F41.8 Other specified anxiety disorders; H91.90 Unspecified hearing loss, unspecified ear; I08.1 Rheumatic disorders of both mitral and tricuspid valves; Z20.822 Contact with and (suspected) exposure to COVID-19; Z66 Do not resuscitate; I25.10 Atherosclerotic heart disease of native coronary artery without angina pectoris; H35.30 Unspecified macular degeneration; I27.29 Other secondary pulmonary hypertension; I10 Essential (primary) hypertension; L40.9 Psoriasis, unspecified; J84.10 Pulmonary fibrosis, unspecified; M19.91 Primary osteoarthritis, unspecified site; R77.8 Other specified abnormalities of plasma proteins; N20.0 Calculus of kidney; N39.3 Stress incontinence (female) (male); R65.20 Severe sepsis without septic shock; Z79.01 Long term (current) use of anticoagulants; Z79.899 Other long term (current) drug therapy; Z82.49 Family history of ischemic heart disease and other diseases of the circulatory system; Z86.73 Personal history of transient ischemic attack (TIA), and cerebral infarction without residual deficits; Z90.710 Acquired absence of both cervix and uterus; Z88.2 Allergy status to sulfonamides; Z60.2 Problems related to living alone; Z83.2 Family history of diseases of the blood and blood-forming organs and certain disorders involving the immune mechanism
CPT/HCPCS: 36415; 70450; 71046; 76770; 80048; 80053; 81001; 82565; 83605; 83735; 83880; 84132; 84484; 85025; 85610; 85730; 86140; 87040; 87077; 87086; 87186; 87635; 93005; 93306; 96374; 99291